=== PATIENT | male | born 1970 | race Caucasian/White ===

== ENCOUNTER → 2016-10-03 | Outpatient (CLI) | payer MEDICARE ==
[2016-10-03 14:23] VITALS: BP 158/93; PULSE 79; RESP 18; TEMP 97.1
--- NOTE | 2016-10-03 14:58 | P.HPIM ---
History of Present Illness H&P Date: 10/03/16 Chief Complaint: mid-back pain and headaches This is a 45-year-old patient referred by Dr. Braswell for chronic pain in the middle of the back with some radiation to the front of the chest and abdomen. Patient has a history of closed-head injury at age 14 and has had chronic headaches for some time, and also complains of numbness/tingling in both hands and feet. Patient had a work-related injury where his back twisted while he was carrying a heavy object and he felt a pop in the middle of his back and has had pain there ever since. Patient has not been taking medications recently except for tramadol, but was previously getting [place] from PCP with relief but is now off opioids completely and does not want them anymore. Patient denies adverse drug effects from medications. Patient also denies new-onset weakness, bowel/bladder incontinence, or any other signs or symptoms of cauda equina syndrome. There are no signs of acute intoxication, and no indications of medication diversion or overuse. Patient notes that pain worsens significantly with standing and walking, and improves with rest, ice and medication. He states that the middle of his back often feels like it's "on fire" and soto a lot. Patient has used several types of medications for pain, including NSAIDS, OPIOIDS, TRAMADOL, ANTIDEPRESSANTS, and BENZODIAZEPINES. Patient HAS NOT had surgery. Patient HAS NOT had injections previously. Patient HAS NOT had physical therapy recently. In addition to above, 13-point review of systems is also negative for chest pain , shortness of breath, changes in vision, changes in hearing, new onset weakness , abdominal pain, diarrhea, extreme fatigue, malaise, fever, skin changes, homicidal or suicidal ideation, or bowel or bladder incontinence. Vital Signs: Reviewed in EMR Gen: WDWN, AAOx3, NAD HEENT: NCAT, EOMI, hearing grossly normal Pulm: resp unlabored Abd: soft, NT, ND Neck: supple, trachea midline ROM in flexion thoracic spine: reduced ROM in extension thoracic spine: reduced Thoracic paravertebral tenderness: ++ Thoracic Facet tenderness: + left side Upper extremity: decreased sensation to pinprick bilaterally Neuro: CN II-XII grossly intact, muscle strength lower extremities PRESERVED Past Medical History Past Medical History: Diabetes Mellitus Additional Past Medical History / Comment(s): migraines, closed head injury History of Any Multi-Drug Resistant Organisms: None Reported Additional Past Surgical History / Comment(s): rhinoplast Past Psychological History: No Psychological Hx Reported, Depression Smoking Status: Current every day smoker Past Alcohol Use History: Rare Past Drug Use History: None Reported - Past Family History Father Family Medical History: Coronary Artery Disease (CAD) Mother Additional Family Medical History / Comment(s): depression Medications and Allergies Home Medications Medication Instructions Recorded Confirmed Type Aspirin EC [Ecotrin Low Dose] 81 mg PO DAILY 10/03/16 10/03/16 History Escitalopram [Lexapro] 10 mg PO DAILY 10/03/16 10/03/16 History Rizatriptan Benzoate [Maxalt] 10 mg PO BID PRN 10/03/16 10/03/16 History clonazePAM [KlonoPIN] 0.5 mg PO TID PRN 10/03/16 10/03/16 History Allergies Allergy/AdvReac Type Severity Reaction Status Date / Time No Known Allergies Allergy Verified 10/03/16 14:15 Results Comments: MRI thoracic spine demonstrates mild degenerative changes. There is posterior disc osteophyte complex at the C6-C7 level. There is a small central disc protrusion at T5-T6 without significant central canal or neural foraminal stenosis. There is small left paracentral disc protrusion at T9-T10 which abuts and flattens the left ventral cord with mild central canal stenosis on the left. There are several small Schmorl's nodes at the inferior endplates of the T6 T9 and T11 vertebrae. Assessment and Plan (1) Thoracic disc herniation Status: Chronic (2) Thoracic spinal stenosis Status: Chronic (3) Thoracic degenerative disc disease Status: Chronic Plan: Plan: 1. Explanation: Opioid and psychological risk scores were reviewed. Diagnoses , prognoses, and multiple treatment options including but not limited to physical therapy, interventional therapies, adjuvant medical therapies, narcotic medication therapies, and surgery were discussed with the patient and all questions were answered to the patient's satisfaction. 2. Opioid agreement: patient refuses opioids 3. Counseling: The patient was counseled extensively on SMOKING CESSATION, BODY MASS INDEX, EXERCISE. Specifically, the patient was instructed regarding the importance of smoking cessation, obesity, and exercise in the context of both chronic pain and overall health. 4. Procedures: thoracic YAZ 5. Consultations: none 6. Investigations: will obtain patient's previous MRI C-spine and records from his future visits to migraine clinic and Dr. Mathew 7. Medications: none prescribed 8. Disposition: f/u for procedure as scheduled if Dr. Mathew does not want to do surgery for him PQRS measures: 1-Patient's medications are documented in the chart. 2-Tobacco use is positive, counseling given 3-Patient has not had a pneumococcal vaccine. 4-Advanced care planning discussed, patient unable to give. 5-Opioid contract NOT signed with the patient (patient does not want opioids). 6-Pain positive, follow-up visit or procedure scheduled 7-Patient's blood pressure measured and documented, and patient will follow up with the primary care due to hypertension. 8-Patient's weight was measured, and body mass index within the normal limits. 9-Patient WAS NOT identified as an unhealthy alcohol user. Time with Patient: Greater than 30
== END | disposition home or self-care (01) ==
LOC: PNWHC3 13:49
PROVIDERS: ATTEND Anesthesiology
DX: M51.24 Other intervertebral disc displacement, thoracic region (principal); M48.04 Spinal stenosis, thoracic region; M51.37 Other intervertebral disc degeneration, lumbosacral region; R51 Headache; F32.9 Major depressive disorder, single episode, unspecified; Z87.820 Personal history of traumatic brain injury; S39.82XA Other specified injuries of lower back, initial encounter; X50.1XXA Overexertion from prolonged static or awkward postures, initial encounter; Y93.89 Activity, other specified; Z79.899 Other long term (current) drug therapy; F17.200 Nicotine dependence, unspecified, uncomplicated; Z72.0 Tobacco use; I10 Essential (primary) hypertension
CPT/HCPCS: 99201

== ENCOUNTER → 2017-05-26 | Outpatient (CLI) | payer MEDICARE ==
[2017-05-26 10:26] LABS: Non-African American GFR(MDRD) >60 (>60 ml/min/1.73 sqM)
--- NOTE | 2017-05-30 09:51 | MR ---
EXAMINATION TYPE: MR brain wo/w con DATE OF EXAM: 05/26/2017 COMPARISON: Prior outside MRI brain July 12, 2016 HISTORY: Migraine, mood swings, hx CHI 1985 TECHNIQUE: Multiplanar, multisequence images of the brain and brainstem is performed without and with IV contras t, utilizing 9 mL intravenous Gadavist . FINDINGS: Diffusion weighted images demonstrate no evidence of a recent infarct or other diffusion ab normality. There is no worrisome extra-axial fluid collection. The ventricular system and cisternal spaces are normal in size and appearance. The brain volume is age appropriate. There are few scatte red punctate areas of T2 hyperintensity throughout the white matter redemonstrated all measuring less than 10 mm in size. There is redemonstration of areas of focal encephalomalacia bilateral parietal r egions, right greater than left in size, near level of lateral ventricles. Midline structures demonstrate normal morphology. The craniocervical junction appears within normal limits. Post contrast images demonstrate no abnormal enhancement. The dural venous sinuses appear pa tent. The visualized sinuses are clear and the globes are intact. IMPRESSION: 1. No significant change from prior study. Minimal nonspecific white matter changes may be product of sequela of chronic migraine headaches among the broad differential. Areas of encephalomalacia or old infarct bilateral parietal lobes redemonstrated.
== END | disposition home or self-care (01) ==
LOC: RADMRIMAIN 09:52
PROVIDERS: ATTEND Physician Assistant
DX: R90.82 White matter disease, unspecified (principal); I10 Essential (primary) hypertension
CPT/HCPCS: 82565; 70553; 36415; A9581

== ENCOUNTER 2018-04-05 16:13 | Emergency (ER) | payer MEDICARE ==
[2018-04-05 16:55] VITALS: RESP 18
[2018-04-05] MEDS ORDERED: SODIUM CHLORIDE 0.9% 1,000 ML IV STA (18:57)
[2018-04-05 18:59] LABS: HCT 40.5 % (39.0-53.0); HGB 12.9 gm/dL (13.0-17.5); MCH 30.4 pg (25.0-35.0); MCHC 31.9 g/dL (31.0-37.0); MCV 95.4 fL (80.0-100.0); Mean Platelet Volume 6.2; Platelet Count 186 k/uL (150-450); RBC 4.25 m/uL (4.30-5.90); RDW 13.8 % (11.5-15.5); WBC 5.5 k/uL (3.8-10.6)
[2018-04-05 19:11] LABS: ALT 41 U/L (21-72); AST 28 U/L (17-59); Alkaline Phosphatase 90 U/L (38-126); Anion Gap 7 mmol/L; Blood Urea Nitrogen 8 mg/dL (9-20); Calcium 8.9 mg/dL (8.4-10.2); Carbon Dioxide 28 mmol/L (22-30); Chloride 103 mmol/L (98-107); Glucose 132 mg/dL (74-99); Potassium 4.1 mmol/L (3.5-5.1); Sodium 138 mmol/L (137-145); Total Bilirubin 0.4 mg/dL (0.2-1.3); Total Protein 6.4 g/dL (6.3-8.2)
--- NOTE | 2018-04-05 19:37 | ED ---
General Adult HPI - General Chief complaint: Extremity Problem,Nontraumatic Stated complaint: leg swelling Time Seen by Provider: 04/05/18 18:36 Source: patient Mode of arrival: ambulatory Limitations: no limitations - History of Present Illness Initial comments: 47 years old male presents with the urging of the both legs, legs or sore, they' re swollen and he has some sort of neuropathy is a type II diabetic. He denies any trauma to the legs she denies any chest pain or shortness of breath he denies any pleuritic chest pain. No fever no chills no signs of any obvious cellulitis. He denies any history of DVT or PE. - Related Data Home Medications Medication Instructions Recorded Confirmed Rizatriptan Benzoate [Maxalt] 10 mg PO BID PRN 10/03/16 04/05/18 Atorvastatin [Lipitor] 20 mg PO HS 04/05/18 04/05/18 Clotrimazole Charles [Mycelex 10 mg MUCOUS MEM DAILY PRN 04/05/18 04/05/18 Charles] Escitalopram [Lexapro] 20 mg PO HS 04/05/18 04/05/18 Lisinopril [Zestril] 20 mg PO DAILY 04/05/18 04/05/18 Montelukast [Singulair] 10 mg PO HS 04/05/18 04/05/18 Ondansetron HCl [Zofran] 4 mg PO BID PRN 04/05/18 04/05/18 metFORMIN HCL ER [Glucophage Xr] 500 mg PO HS 04/05/18 04/05/18 Allergies Allergy/AdvReac Type Severity Reaction Status Date / Time sumatriptan [From Imitrex] Allergy Swelling Verified 04/05/18 18:38 tramadol [From Ultram] AdvReac EAR RINGING Verified 04/05/18 18:41 Review of Systems ROS Statement: Those systems with pertinent positive or pertinent negative responses have been documented in the HPI. ROS Other: All systems not noted in ROS Statement are negative. Past Medical History Past Medical History: Diabetes Mellitus, Hyperlipidemia, Hypertension Additional Past Medical History / Comment(s): migraines, closed head injury History of Any Multi-Drug Resistant Organisms: None Reported Additional Past Surgical History / Comment(s): rhinoplasty Past Anesthesia/Blood Transfusion Reactions: No Reported Reaction Past Psychological History: Depression Smoking Status: Current every day smoker Past Alcohol Use History: Rare Past Drug Use History: None Reported - Past Family History Father Family Medical History: Coronary Artery Disease (CAD) Mother Additional Family Medical History / Comment(s): depression General Exam - General Exam Comments Initial Comments: General: The patient is awake and alert, in no distress, and does not appear acutely ill. Skin: Skin is warm and dry and no rashes or lesions are noted. Eye: Pupils are equal, round and reactive to light, extra-ocular movements are intact; there is normal conjunctiva bilaterally. Ears, nose, mouth and throat: There are moist mucous membranes and no oral lesions. Neck: The neck is supple, there is no tenderness or JVD. Cardiovascular: There is a regular rate and rhythm. No murmur, rub or gallop is appreciated. Respiratory: To auscultation bilateral, no wheezing no rhonchi no distress respiratory bolaños noticed Gastrointestinal: Soft, non-distended, non-tender abdomen without masses or organomegaly noted. There is no rebound or guarding present. Bowel sounds are unremarkable. Back: There is no tenderness to palpation in the midline. There is no obvious deformity. Musculoskeletal: Normal ROM, noticed 2+ edema bilateral no clinical signs of any cellulitis and he is bit tender over the calf areas bilateral and will do the d-dimer if necessary will go ahead and do the venous Dopplers Neurological: CN II-XII intact, Cranial nerves III through XII are intact. There are no obvious motor or sensory deficits. Coordination appears grossly intact. Speech is normal. Psychiatric: Cooperative, appropriate mood & affect, normal judgment. Limitations: no limitations Course Vital Signs 04/05/18 16:52 Temperature 97.9 F Pulse Rate 81 Respiratory 18 Rate Blood Pressure 135/71 O2 Sat by Pulse 99 Oximetry D-dimer is unremarkable along with a CBC and compressive metabolic panel and chest x-ray is unremarkable patient be discharged to follow-up with family doctor EKG Findings - EKG Comments: EKG Findings:: EKG is normal sinus ventricular rate is 71 [place] interval is 166 QRS duration is 100 QT/QTc is 480/454 and aVF this EKG is bit Cold because of the multiple artifacts but do not see any clear ST elevation in any of the leads no clear ST depression noticed noticed reddening of the T-wave in aVL Medical Decision Making - Lab Data Result diagrams: 04/05/18 18:45 04/05/18 18:45 Lab Results 04/05/18 04/05/18 04/05/18 Range/Units 18:45 18:45 18:45 WBC 5.5 (3.8-10.6) k/uL RBC 4.25 L (4.30-5.90) m/uL Hgb 12.9 L (13.0-17.5) gm/dL Hct 40.5 (39.0-53.0) % MCV 95.4 (80.0-100.0) fL MCH 30.4 (25.0-35.0) pg MCHC 31.9 (31.0-37.0) g/dL RDW 13.8 (11.5-15.5) % Plt Count 186 (150-450) k/uL PT (9.0-12.0) sec INR (<1.2) APTT (22.0-30.0) sec D-Dimer (<0.60) mg/L FEU Sodium 138 (137-145) mmol/L Potassium 4.1 (3.5-5.1) mmol/L Chloride 103 (98-107) mmol/L Carbon Dioxide 28 (22-30) mmol/L Anion Gap 7 mmol/L BUN 8 L (9-20) mg/dL Creatinine 0.54 L (0.66-1.25) mg/dL Est GFR (CKD-EPI)AfAm >90 (>60 ml/min/1.73 sqM) Est GFR (CKD-EPI)NonAf >90 (>60 ml/min/1.73 sqM) Glucose 132 H (74-99) mg/dL Calcium 8.9 (8.4-10.2) mg/dL Total Bilirubin 0.4 (0.2-1.3) mg/dL AST 28 (17-59) U/L ALT 41 (21-72) U/L Alkaline Phosphatase 90 (38-126) U/L Total Creatine Kinase 291 H (55-170) U/L NT-Pro-B Natriuret Pep pg/mL Total Protein 6.4 (6.3-8.2) g/dL Albumin 4.0 (3.5-5.0) g/dL 04/05/18 04/05/18 Range/Units 18:45 18:45 WBC (3.8-10.6) k/uL RBC (4.30-5.90) m/uL Hgb (13.0-17.5) gm/dL Hct (39.0-53.0) % MCV (80.0-100.0) fL MCH (25.0-35.0) pg MCHC (31.0-37.0) g/dL RDW (11.5-15.5) % Plt Count (150-450) k/uL PT 9.9 (9.0-12.0) sec INR 1.0 (<1.2) APTT 25.5 (22.0-30.0) sec D-Dimer 0.28 (<0.60) mg/L FEU Sodium (137-145) mmol/L Potassium (3.5-5.1) mmol/L Chloride (98-107) mmol/L Carbon Dioxide (22-30) mmol/L Anion Gap mmol/L BUN (9-20) mg/dL Creatinine (0.66-1.25) mg/dL Est GFR (CKD-EPI)AfAm (>60 ml/min/1.73 sqM) Est GFR (CKD-EPI)NonAf (>60 ml/min/1.73 sqM) Glucose (74-99) mg/dL Calcium (8.4-10.2) mg/dL Total Bilirubin (0.2-1.3) mg/dL AST (17-59) U/L ALT (21-72) U/L Alkaline Phosphatase (38-126) U/L Total Creatine Kinase (55-170) U/L NT-Pro-B Natriuret Pep 73 pg/mL Total Protein (6.3-8.2) g/dL Albumin (3.5-5.0) g/dL Disposition Clinical Impression: Leg swelling Disposition: HOME SELF-CARE Condition: Good Instructions: Leg Edema (ED) Is patient prescribed a controlled substance at d/c from ED?: No Referrals: None,Stated [Primary Care Provider] - 1-2 days
[2018-04-05 20:23] LABS: Creatine Kinase 291 U/L (55-170)
[2018-04-05 20:26] LABS: D-Dimer 0.28 mg/L FEU (<0.60); Partial Thromboplastin Time 25.5 sec (22.0-30.0); Prothrombin Time 9.9 sec (9.0-12.0)
[2018-04-05 20:35] LABS: Troponin I <0.012 ng/mL (0.000-0.034)
--- NOTE | 2018-04-05 20:47 | XR ---
EXAMINATION TYPE: XR chest 2V DATE OF EXAM: 04/05/2018 COMPARISON: NONE HISTORY: Leg swelling TECHNIQUE: Frontal and lateral views of the chest are obtained. FINDINGS: Heart and mediastinum are normal. There is slight coarsening of interstitial markings in t he lower lung allen. There is no heart failure. Mediastinum is within normal limits. There is no ple ural effusion. Bony thorax is intact. IMPRESSION: Minimal pulmonary interstitial density. No heart failure.
[2018-04-05 21:11] LABS: Creatine Kinase MB 4.9 ng/mL (0.0-2.4)
[2018-04-05 21:31] VITALS: BP 115/59; PULSE 68; TEMP 97.7
== END 2018-04-05 21:32 | disposition home or self-care (01) ==
LOC: EC 16:13
DX: M79.89 Other specified soft tissue disorders (principal); E11.40 Type 2 diabetes mellitus with diabetic neuropathy, unspecified; E78.5 Hyperlipidemia, unspecified; I10 Essential (primary) hypertension; F32.9 Major depressive disorder, single episode, unspecified; F17.200 Nicotine dependence, unspecified, uncomplicated; Z79.84 Long term (current) use of oral hypoglycemic drugs; Z79.899 Other long term (current) drug therapy; Z88.8 Allergy status to other drugs, medicaments and biological substances; Z88.6 Allergy status to analgesic agent
CPT/HCPCS: 36415; 71046; 80053; 82550; 82553; 83735; 83880; 84484; 85027; 85379; 85610; 85730; 93005; 99284

== ENCOUNTER → 2022-09-07 | Outpatient (CLI) | payer MEDICARE ==
[2022-09-07 09:24] VITALS: BP 95/56; PULSE 89; RESP 18
--- NOTE | 2022-09-07 10:22 | XR ---
EXAMINATION TYPE: XR thoracic spine 2V DATE OF EXAM: 09/07/2022 9:34 AM INDICATION: Patient age:Male; 51 years old; Reason for study: M51.34; COMPARISON: None TECHNIQUE: 2 views of the thoracic spine in Frontal and lateral projections. FINDINGS: No evidence of acute fracture. Vertebral body heights are maintained. There is increased kyphosis of the spine. Mild degeneration changes with osteophyte formation and disc space narrowing. IMPRESSION: 1. No acute osseous pathology. 2. Mild multilevel disc degeneration changes throughout the thoracic spine.
--- NOTE | 2022-09-07 14:06 | P.PAINPG ---
PQRS Measure Charge Sheet Comment: HISTORY OF PRESENT ILLNESS: 51 yr old male as a referral from Dr Varela presents today w severe and chronic neck & upper back pain secondary to DDD, stenosis and facet arthropathy without myelopathy for evaluation. Pt states pain level is at 7/10 in intensity, constant, localized in the lower cervical and upper thoracic spine, burning, sharp in character w tingling towards the UEs. Also admits to a sore spot in the upper thoracic region L of midline. Pain is provoked by palpation, hyperextension, rotation. Pain is alleviated by medications (Methadone 10mg QID), Lidoderm patches which are ineffective, PT and chiropractic treatments in the past, home stretching regimen as tolerated, repositioning and rest. PMH: HTN, Hyperlipidemia, DM II, GERD, Migraine SERRANO, MDD/ Anxiety, Bipolar Disorder PSH: Hx of CHI, Rhinoplasty SH: 72 pack/yr current tobacco use, Rare ETOH use, No illicit drug use. . FH: Fa- CAD. Mo- MDD. All: See list Meds: See list REVIEW OF ORGAN SYSTEMS: CONSTITUTIONAL: No fevers or chills. No recent weight loss. NEUROLOGICAL: + numbness and tingling along the distal extremities. No seizure disorders or headaches. MUSCULOSKELETAL: + pain PSYCHIATRIC: Denies current depression or suicidal thoughts. Physical Examinations : Constitutional : Cooperative , not in acute distress . Neurologic : Cranial nerve II to XII intact. No focal neurological deficits. Psychiatric : alert & oriented x 3. Matching mood & appropriate affect. Judgment & insight intact. Musculoskeletal : Cervical Spine Motor strength in the deltoid and biceps: Normal right side. Normal Left side Motor strength biceps and the wrist extensors: Normal right side . Normal left side Motor strength in the triceps muscle: Normal right side. Normal left side Deep tendon reflexes: Normal at the biceps. Normal at Brachioradialis. Normal at triceps Vertebral body tenderness to deep palpation over C4, C5, C6, C7 Cervical facet loading test: positive bilaterally Spurling test: positive bilaterally Neck distraction test: positive bilaterally Argelia sign: positive bilaterally Thoracic spine Vertebral body TTP over T4-T6 L of midline Lumbar spine Motor strength lower extremities ,thigh and legs 5/5 Right side , 5/5 Left side Deep tendon reflexes : Normal Knee Jerk. Normal Ankle Jerk Vertebral body tenderness over Lumbar facet Loading Test: positive Right / positive Left Range of motion of the lumbar spine Flexion 30 degrees, extension 10 degrees Straight Leg Raise test: Left/ Right positive at degree Cecily test: positive right / positive left. Severe tenderness over the Sacroiliac joint on the Right / Left sides Gaenslen test: positive bilaterally Seated flexion test: positive bilaterally. Sacral spine : Severe tenderness over the Sacroiliac joint: right side / left side Range of motion: Flexion of the lumbar spine <60 degrees Range of motion: Extension of the lumbar spine <20 degrees Gaenslen's Test positive Derrick's Test positive Cecily test: positive right side / left side Thigh Thrust Test Sacral Thrust Test Imaging: MRI without contrast of the cervical spine from 12/30/20 reviewed Assessment/ Plan : Cervical stenosis, cervical DDD Recommendation of refill of Methadone 10mg TID w 1 RF. EKG script provided as pt does not recall when his last EKG was due to symptoms of CHI. Thoracic x ray re: M51.34 provided. May return to clinic in 8 wks for a re evaluation. All questions answered. I have spent greater than 30 minutes on patient care today. Dr Burgos was available by phone for the evaluation of this patient. The time was used to review the medical records including relevant urine studies and Prescription history (MAPs), review of the available imaging, evaluation and examination of the patient, coordination of care with the medical staff and if applicable referring physicians, as well as creation of the medical record PQRS Narrative: Smoking Status Current every day smoker Hx Alcohol Use (MH) No Home Medications: Ambulatory Orders Rizatriptan Benzoate [Maxalt] 10 mg PO BID PRN 10/03/16 Atorvastatin [Lipitor] 20 mg PO HS 04/05/18 metFORMIN HCL ER [Glucophage Xr] 500 mg PO HS 04/05/18 ondansetron HCL [Zofran] 4 mg PO BID PRN 04/05/18 ALPRAZolam [Xanax] 0.5 mg PO DAILY PRN 09/07/22 Albuterol Sulfate [Ventolin HFA] 1 - 2 puff INHALATION Q6H PRN 09/07/22 Desvenlafaxine Succinate [Pristiq] 100 mg PO DAILY 09/07/22 Fluticasone/Vilanterol [Breo Ellipta 100-25 Mcg Inhaler] 1 inhalation PO Q24HR 09/07/22 Furosemide [Lasix] 40 mg PO DAILY 09/07/22 Insulin Degludec [Tresiba] 0 units SQ DAILY 09/07/22 Methadone [Dolophine] 10 mg PO Q6H 09/07/22 Olmesartan [Benicar] 20 mg PO DAILY 09/07/22 Omeprazole [PriLOSEC] 20 mg PO AC-[id number] 09/07/22 Pioglitazone [Actos] 15 mg PO DAILY 09/07/22 Potassium Chloride ER [K-Dur 10] 10 meq PO DAILY 09/07/22 QUEtiapine [SEROquel] 100 mg PO DAILY 09/07/22 Vitamin B Complex/Folic Acid [Vitamin B Complex Tablet] 0.4 mg PO DAILY 09/07/22 tiZANidine HCL [Zanaflex] 4 mg PO TID 09/07/22 Controlled Substance Measures - Controlled Substance Measures Is patient prescribed a controlled substance at discharge?: Yes When asked, does pt state using other controlled substances?: No If prescribed controlled substance>3 days was MAPS reviewed?: Yes If Rx opioid, was Start Talking consent form obtained?: Yes If opioid is for acute pain is fill amount 7 days or less?: No Was information provided regarding opioid addiction?: Yes
== END ==
LOC: PNWHC3 08:10
PROVIDERS: ATTEND Specialist
DX: M50.30 Other cervical disc degeneration, unspecified cervical region (principal); M48.02 Spinal stenosis, cervical region; I10 Essential (primary) hypertension; E78.5 Hyperlipidemia, unspecified; E11.9 Type 2 diabetes mellitus without complications; K21.9 Gastro-esophageal reflux disease without esophagitis; F41.9 Anxiety disorder, unspecified; F31.9 Bipolar disorder, unspecified; Z79.84 Long term (current) use of oral hypoglycemic drugs; F17.200 Nicotine dependence, unspecified, uncomplicated; Z88.5 Allergy status to narcotic agent; Z88.8 Allergy status to other drugs, medicaments and biological substances
CPT/HCPCS: 72070; 93005; G0463; 99202

== ENCOUNTER → 2022-11-02 | Outpatient (CLI) | payer MEDICARE ==
--- NOTE | 2022-11-02 14:51 | P.PAINPG ---
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 Pain level is provoked at 6 /10 in intensity, constant, localized in the thoracic spine, dull in character w/o shooting pain. Pain is provoked by over activity. Pain is alleviated with medications (Methadone), repositioning and rest. Completed thoracic x ray in Aug 2022. Patient is currently on Methadone 10mg #90 Patient denies any side effects of the medication(s), denies excessive drowsiness or sleepiness, denies suicidal ideation and reports that the current pain medication is helping to control the pain and improve activities of daily living. Patient denies any motor or sensory deficits. Patient denies any fever or night sweats, denies any change in the bowel movements or urination. Physical Examination: -Constitutional: Cooperative. Not in acute distress . - Neurologic: Cranial nerve II to XII intact. No focal neurological deficits. - Psychatric: Alert & oriented x 3. Matching mood & appropriate affect. Judgment and insight intact. - Musculoskeletal: Cervical spine: Muscle bulk/ tone/ strength in the bilateral upper extremities normal Vertebral body tenderness to palpation over Spurling test positive Distraction test positive Facet loading test positive TTP Thoracic spine Muscle bulk / tone/ strength in the bilateral paraspinal muscles normal Vertebral body tender to palpation over T7 Facet loading test positive TTP Lumbar spine: Motor bulk/ tone/ strength lower extremities , thigh and legs : 5/5 Deep tendon reflexes : Normal Knee Jerk. Normal Ankle Jerk . Vertebral body tenderness to palpation over Lumbar Facet Loading Test positive Straight Leg Raise: positive at 30 degrees right side/ left side Gaenslen's Test positive Sacral spine : Severe tenderness over the Sacroiliac joint: right side / left side Range of motion: Flexion of the lumbar spine <60 degrees Range of motion: Extension of the lumbar spine <20 degrees Gaenslen's Test positive right side / left side Cecily test: positive right side / left side Thigh Thrust Test positive right side / left side Sacral Thrust Test positive right side / left side Assessment and plan: Chronic mid back secondary to thoracic DDD, spondylosis with facet arthropathy without myelopathy MRI without contrast of the thoracic spine re: M51.34 Chronic and current use of high-risk medication (Opioids). The patient was counseled about risk of opioid use, psychological risk associated with opioids and was orally counseled to not overuse , divert or sell medications. Pt is to store medication in a safe location. The patient is counseled against driving while using narcotic medications and also not to use alcohol or any illicit recreational drugs. Patient verbalized understanding that the lack of compliance will result in failure to renew narcotic prescription(s) as well as possible discharge from the clinic Diagnoses, prognosis and treatment options including but not limited to physical therapy, surgical interventions, interventional therapies and medication management including narcotics and adjuvant medication were discussed. All patient questions answered MAPS reviewed and it was appropriate. Prescription refill for Methadone 10mg #90 w 1 RF. I have spent less than 30 minutes on patient care today. Dr Burgos was available by phone for the evaluation of this patient. The time was used to review the medical records including relevant urine studies and Prescription history (MAPs), review of the available imaging, evaluation and examination of the patient, coordination of care with the medical staff and if applicable referring physicians, as well as creation of the medical record PQRS Narrative: Smoking Status Current every day smoker Narcotic Agreement Date Signed 09/07/22 Hx Alcohol Use (MH) No Home Medications: Ambulatory Orders Rizatriptan Benzoate [Maxalt] 10 mg PO BID PRN 10/03/16 Atorvastatin [Lipitor] 20 mg PO HS 04/05/18 metFORMIN HCL ER [Glucophage Xr] 500 mg PO HS 04/05/18 ondansetron HCL [Zofran] 4 mg PO BID PRN 04/05/18 ALPRAZolam [Xanax] 0.5 mg PO DAILY PRN 09/07/22 Albuterol Sulfate [Ventolin HFA] 1 - 2 puff INHALATION Q6H PRN 09/07/22 Desvenlafaxine Succinate [Pristiq] 100 mg PO DAILY 09/07/22 Fluticasone/Vilanterol [Breo Ellipta 100-25 Mcg Inhaler] 1 inhalation PO Q24HR 09/07/22 Furosemide [Lasix] 40 mg PO DAILY 09/07/22 Insulin Degludec [Tresiba] 0 units SQ DAILY 09/07/22 Olmesartan [Benicar] 20 mg PO DAILY 09/07/22 Omeprazole [PriLOSEC] 20 mg PO AC-BRKFST 09/07/22 Pioglitazone [Actos] 15 mg PO DAILY 09/07/22 Potassium Chloride ER [K-Dur 10] 10 meq PO DAILY 09/07/22 QUEtiapine [SEROquel] 100 mg PO DAILY 09/07/22 Vitamin B Complex/Folic Acid [Vitamin B Complex Tablet] 0.4 mg PO DAILY 09/07/22 tiZANidine HCL [Zanaflex] 4 mg PO TID 09/07/22 Methadone HCl 10 mg PO TID 30 Days #90 tab 11/02/22 Methadone [Dolophine] 10 mg PO Q8H 30 Days #90 tab 11/02/22 Controlled Substance Measures - Controlled Substance Measures Is patient prescribed a controlled substance at discharge?: Yes
[2022-11-02 15:38] VITALS: BP 135/92; PULSE 91; RESP 18; TEMP 98.7
== END ==
LOC: PNWHC3 13:02
PROVIDERS: ATTEND Specialist
DX: M51.34 Other intervertebral disc degeneration, thoracic region (principal); M47.814 Spondylosis without myelopathy or radiculopathy, thoracic region; G89.29 Other chronic pain; Z79.891 Long term (current) use of opiate analgesic; Z88.5 Allergy status to narcotic agent; Z88.8 Allergy status to other drugs, medicaments and biological substances; F17.200 Nicotine dependence, unspecified, uncomplicated
CPT/HCPCS: 99211

== ENCOUNTER → 2022-12-29 | Outpatient (CLI) | payer MEDICARE ==
[2022-12-29 12:01] VITALS: BP 144/91; PULSE 101; RESP 18; TEMP 98.5
--- NOTE | 2022-12-29 14:46 | P.PAINPG ---
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 Pain level is provoked at 9 /10 in intensity, constant, localized in the thoracic spine, pressure in character w/o shooting pain. Pain is provoked by over activity. PT was years ago. Pain is alleviated with medications (Methadone), Lidoderm patches, repositioning and rest. Completed thoracic x ray in Aug 2022. Has not completed MRI thoracic spine. Urged compliance. Patient is currently on Methadone 10mg #90 Patient denies any side effects of the medication(s), denies excessive drowsiness or sleepiness, denies suicidal ideation and reports that the current pain medication is helping to control the pain and improve activities of daily living. Patient denies any motor or sensory deficits. Patient denies any fever or night sweats, denies any change in the bowel movements or urination. Physical Examination: -Constitutional: Cooperative. Not in acute distress . - Neurologic: Cranial nerve II to XII intact. No focal neurological deficits. - Psychatric: Alert & oriented x 3. Matching mood & appropriate affect. Judgment and insight intact. - Musculoskeletal: Cervical spine: Muscle bulk/ tone/ strength in the bilateral upper extremities normal Vertebral body tenderness to palpation over Spurling test positive Distraction test positive Facet loading test positive TTP Thoracic spine Muscle bulk / tone/ strength in the bilateral paraspinal muscles normal Vertebral body tender to palpation over T7 Facet loading test positive TTP Lumbar spine: Motor bulk/ tone/ strength lower extremities , thigh and legs : 5/5 Deep tendon reflexes : Normal Knee Jerk. Normal Ankle Jerk . Vertebral body tenderness to palpation over Lumbar Facet Loading Test positive Straight Leg Raise: positive at 30 degrees right side/ left side Gaenslen's Test positive Sacral spine : Severe tenderness over the Sacroiliac joint: right side / left side Range of motion: Flexion of the lumbar spine <60 degrees Range of motion: Extension of the lumbar spine <20 degrees Gaenslen's Test positive right side / left side Cecily test: positive right side / left side Thigh Thrust Test positive right side / left side Sacral Thrust Test positive right side / left side Assessment and plan: Chronic mid back secondary to thoracic DDD, spondylosis with facet arthropathy without myelopathy MRI without contrast of the thoracic spine re: M51.34 Chronic and current use of high-risk medication (Opioids). The patient was counseled about risk of opioid use, psychological risk associated with opioids and was orally counseled to not overuse , divert or sell medications. Pt is to store medication in a safe location. The patient is counseled against driving while using narcotic medications and also not to use alcohol or any illicit recreational drugs. Patient verbalized understanding that the lack of compliance will result in failure to renew narcotic prescription(s) as well as possible discharge from the clinic Diagnoses, prognosis and treatment options including but not limited to physical therapy, surgical interventions, interventional therapies and medication management including narcotics and adjuvant medication were discussed. All patient questions answered MAPS reviewed and it was appropriate. Will check UDS at next visit. Prescription refill for Methadone 10mg #90 w 1 RF. I have spent less than 30 minutes on patient care today. Dr Burgos was available by phone for the evaluation of this patient. The time was used to review the medical records including relevant urine studies and Prescription history (MAPs), review of the available imaging, evaluation and examination of the patient, coordination of care with the medical staff and if applicable referring physicians, as well as creation of the medical record PQRS Narrative: Smoking Status Current every day smoker Narcotic Agreement Date Signed 09/07/22 Hx Alcohol Use (MH) No Home Medications: Ambulatory Orders Rizatriptan Benzoate [Maxalt] 10 mg PO BID PRN 10/03/16 Atorvastatin [Lipitor] 20 mg PO HS 04/05/18 metFORMIN HCL ER [Glucophage Xr] 500 mg PO HS 04/05/18 ondansetron HCL [Zofran] 4 mg PO BID PRN 04/05/18 ALPRAZolam [Xanax] 0.5 mg PO DAILY PRN 09/07/22 Albuterol Sulfate [Ventolin HFA] 1 - 2 puff INHALATION Q6H PRN 09/07/22 Desvenlafaxine Succinate [Pristiq] 100 mg PO DAILY 09/07/22 Fluticasone/Vilanterol [Breo Ellipta 100-25 Mcg Inhaler] 1 inhalation PO Q24HR 09/07/22 Furosemide [Lasix] 40 mg PO DAILY 09/07/22 Insulin Degludec [Tresiba] 0 units SQ DAILY 09/07/22 Olmesartan [Benicar] 20 mg PO DAILY 09/07/22 Omeprazole [PriLOSEC] 20 mg PO AC-BRKFST 09/07/22 Pioglitazone [Actos] 15 mg PO DAILY 09/07/22 Potassium Chloride ER [K-Dur 10] 10 meq PO DAILY 09/07/22 QUEtiapine [SEROquel] 100 mg PO DAILY 09/07/22 Vitamin B Complex/Folic Acid [Vitamin B Complex Tablet] 0.4 mg PO DAILY 09/07/22 tiZANidine HCL [Zanaflex] 4 mg PO TID 09/07/22 Methadone HCl 10 mg PO TID 30 Days #90 tab 12/29/22 Methadone [Dolophine] 10 mg PO Q8H 30 Days #90 tab 12/29/22 Controlled Substance Measures - Controlled Substance Measures Is patient prescribed a controlled substance at discharge?: No
== END ==
LOC: PNWHC3 08:42
PROVIDERS: ATTEND Anesthesiology
DX: M51.34 Other intervertebral disc degeneration, thoracic region (principal); M47.814 Spondylosis without myelopathy or radiculopathy, thoracic region; G89.29 Other chronic pain; Z79.891 Long term (current) use of opiate analgesic; Z91.018 Allergy to other foods; F17.200 Nicotine dependence, unspecified, uncomplicated; Z88.5 Allergy status to narcotic agent; Z88.8 Allergy status to other drugs, medicaments and biological substances
CPT/HCPCS: 99211

== ENCOUNTER → 2023-01-25 | Outpatient (CLI) | payer MEDICARE ==
--- NOTE | 2023-01-25 23:02 | MR ---
EXAMINATION TYPE: MR thoracic spine wo con DATE OF EXAM: 01/25/2023 3:25 PM COMPARISON: No priors. INDICATION: Patient age:Male; 52 years old; Reason for study: M51.34 INTERVERTEBRAL DISC DEGENERATION; PHH. Back pain TECHNIQUE: Multi planar, multi sequence imaging was performed utilizing: T1-weighted, short-tau inver karan recovery and T2-weighted of the thoracic spine. The patient was not given Gadolinium. IV Contrast: None FINDINGS: No abnormal bony edema on inversion recovery sequences. No evidence for significant spinal canal neural foraminal stenosis. Scattered disc space narrowing with disc desiccation is present. Th ere is C7-T1 disc osteophyte complex which mildly narrows the ventral subarachnoid space. No other ev idence for extradural defects. Vertebral body heights and cord signal is maintained. IMPRESSION: No finding to correlate patient's back pain. There is mild degeneration changes. No evidence for sign ificant spinal canal or neural foraminal stenosis.
== END | disposition home or self-care (01) ==
LOC: RADMRIMAIN 14:23
PROVIDERS: ATTEND Specialist
DX: M51.34 Other intervertebral disc degeneration, thoracic region (principal); M47.814 Spondylosis without myelopathy or radiculopathy, thoracic region
CPT/HCPCS: 72146

== ENCOUNTER → 2023-02-22 | Outpatient (CLI) | payer MEDICARE ==
[2023-02-22 14:53] VITALS: BP 154/100; PULSE 104; RESP 97; TEMP 98.2
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
== END ==
LOC: PNWHC3 14:11
PROVIDERS: ATTEND Specialist
DX: M51.34 Other intervertebral disc degeneration, thoracic region (principal); F17.200 Nicotine dependence, unspecified, uncomplicated; M47.814 Spondylosis without myelopathy or radiculopathy, thoracic region; G89.29 Other chronic pain; Z88.8 Allergy status to other drugs, medicaments and biological substances
CPT/HCPCS: 99212

== ENCOUNTER → 2023-04-19 | Outpatient (CLI) | payer MEDICARE ==
[2023-04-19 14:56] VITALS: BP 122/77; PULSE 93; RESP 16; TEMP 98.6
--- NOTE | 2023-04-19 15:04 | P.PAINPG ---
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 Pain level is provoked at 9 /10 in intensity, constant, localized in the thoracic spine, pressure in character w shooting pain towards BL shoulders and ribs. Pain is provoked by over activity. PT was years ago. Pain is alleviated with medications, Lidoderm patches, repositioning and rest. Patient is currently on Methadone 10mg #75 Patient denies any side effects of the medication(s), denies excessive drowsiness or sleepiness, denies suicidal ideation and reports that the current pain medication is helping to control the pain and improve activities of daily living. Patient denies any motor or sensory deficits. Patient denies any fever or night sweats, denies any change in the bowel movements or urination. Physical Examination: -Constitutional: Cooperative. Not in acute distress . - Neurologic: Cranial nerve II to XII intact. No focal neurological deficits. - Psychatric: Alert & oriented x 3. Matching mood & appropriate affect. Judgment and insight intact. - Musculoskeletal: Cervical spine: Muscle bulk/ tone/ strength in the bilateral upper extremities normal Vertebral body tenderness to palpation over Spurling test positive Distraction test positive Facet loading test positive TTP Thoracic spine Muscle bulk / tone/ strength in the bilateral paraspinal muscles normal Vertebral body tender to palpation over T7 Facet loading test positive TTP Lumbar spine: Motor bulk/ tone/ strength lower extremities , thigh and legs : 5/5 Deep tendon reflexes : Normal Knee Jerk. Normal Ankle Jerk . Vertebral body tenderness to palpation over Lumbar Facet Loading Test positive Straight Leg Raise: positive at 30 degrees right side/ left side Gaenslen's Test positive Sacral spine : Severe tenderness over the Sacroiliac joint: right side / left side Range of motion: Flexion of the lumbar spine <60 degrees Range of motion: Extension of the lumbar spine <20 degrees Gaenslen's Test positive right side / left side Cecily test: positive right side / left side Thigh Thrust Test positive right side / left side Sacral Thrust Test positive right side / left side Assessment and plan: Chronic mid back secondary to thoracic DDD, spondylosis with facet arthropathy without myelopathy Chronic and current use of high-risk medication (Opioids). The patient was counseled about risk of opioid use, psychological risk associated with opioids and was orally counseled to not overuse , divert or sell medications. Pt is to store medication in a safe location. The patient is counseled against driving while using narcotic medications and also not to use alcohol or any illicit recreational drugs. Patient verbalized understanding that the lack of compliance will result in failure to renew narcotic prescription(s) as well as possible discharge from the clinic Diagnoses, prognosis and treatment options including but not limited to physical therapy, surgical interventions, interventional therapies and medication management including narcotics and adjuvant medication were discussed. All patient questions answered MAPS reviewed and it was appropriate. UDS fr 02/22/23 reviewed and consistent. Prescription refill for Methadone 10mg #75 w 1 RF. I have spent less than 30 minutes on patient care today. Dr Burgos was available by phone for the evaluation of this patient. The time was used to review the medical records including relevant urine studies and Prescription history (MAPs), review of the available imaging, evaluation and examination of the patient, coordination of care with the medical staff and if applicable referring physicians, as well as creation of the medical record PQRS Narrative: Smoking Status Current every day smoker Narcotic Agreement Date Signed 09/07/22 Hx Alcohol Use (MH) No Home Medications: Ambulatory Orders Rizatriptan Benzoate [Maxalt] 10 mg PO BID PRN 10/03/16 Atorvastatin [Lipitor] 20 mg PO HS 04/05/18 metFORMIN HCL ER [Glucophage Xr] 500 mg PO HS 04/05/18 ondansetron HCL [Zofran] 4 mg PO BID PRN 04/05/18 ALPRAZolam [Xanax] 0.5 mg PO DAILY PRN 09/07/22 Albuterol Sulfate [Ventolin HFA] 1 - 2 puff INHALATION Q6H PRN 09/07/22 Desvenlafaxine Succinate [Pristiq] 100 mg PO DAILY 09/07/22 Fluticasone/Vilanterol [Breo Ellipta 100-25 Mcg Inhaler] 1 inhalation PO Q24HR 09/07/22 Furosemide [Lasix] 40 mg PO DAILY 09/07/22 Insulin Degludec [Tresiba] 0 units SQ DAILY 09/07/22 Olmesartan [Benicar] 20 mg PO DAILY 09/07/22 Omeprazole [PriLOSEC] 20 mg PO AC-BRKFST 09/07/22 Pioglitazone [Actos] 15 mg PO DAILY 09/07/22 Potassium Chloride ER [K-Dur 10] 10 meq PO DAILY 09/07/22 QUEtiapine [SEROquel] 100 mg PO DAILY 09/07/22 Vitamin B Complex/Folic Acid [Vitamin B Complex Tablet] 0.4 mg PO DAILY 09/07/22 tiZANidine HCL [Zanaflex] 4 mg PO TID 09/07/22 Methadone [Dolophine] 10 mg PO Q8H 30 Days #90 tab 12/29/22 Methadone HCl 10 mg PO TID 30 Days #75 tab 02/22/23 Methadone HCl 10 mg PO Q8H 30 Days #75 tab 04/19/23 Methadone HCl 10 mg PO Q8HR 30 Days #75 tablet 04/19/23 Controlled Substance Measures - Controlled Substance Measures Is patient prescribed a controlled substance at discharge?: Yes When asked, does pt state using other controlled substances?: No If prescribed controlled substance>3 days was MAPS reviewed?: Yes
== END ==
LOC: PNWHC3 14:08
PROVIDERS: ATTEND Specialist
DX: M51.34 Other intervertebral disc degeneration, thoracic region (principal); M47.814 Spondylosis without myelopathy or radiculopathy, thoracic region; G89.29 Other chronic pain; F17.200 Nicotine dependence, unspecified, uncomplicated; Z88.8 Allergy status to other drugs, medicaments and biological substances; Z79.891 Long term (current) use of opiate analgesic; Z88.5 Allergy status to narcotic agent
CPT/HCPCS: 93005; G0463; 99211

== ENCOUNTER → 2023-06-14 | Outpatient (CLI) | payer MEDICARE ==
[2023-06-14 14:27] VITALS: BP 159/95; PULSE 109; RESP 16; TEMP 98.7
--- NOTE | 2023-06-14 14:59 | P.PAINPG ---
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 Pain level is provoked at 9 /10 in intensity, constant, localized in the thoracic spine, pressure in character w shooting pain towards BL shoulders and ribs. Pain is provoked by over activity. PT was years ago. Pain is alleviated with medications, Lidoderm patches, repositioning and rest. He hasn't filled Xanax since Jun 2022 and he appears anxious today. Patient is currently on Methadone 10mg #75 Patient denies any side effects of the medication(s), denies excessive drowsiness or sleepiness, denies suicidal ideation and reports that the current pain medication is helping to control the pain and improve activities of daily living. Patient denies any motor or sensory deficits. Patient denies any fever or night sweats, denies any change in the bowel movements or urination. Physical Examination: -Constitutional: Cooperative. Not in acute distress . - Neurologic: Cranial nerve II to XII intact. No focal neurological deficits. - Psychatric: Alert & oriented x 3. Matching mood & appropriate affect. Judgment and insight intact. - Musculoskeletal: Cervical spine: Muscle bulk/ tone/ strength in the bilateral upper extremities normal Vertebral body tenderness to palpation over Spurling test positive Distraction test positive Facet loading test positive TTP Thoracic spine Muscle bulk / tone/ strength in the bilateral paraspinal muscles normal Vertebral body tender to palpation over T7 Facet loading test positive TTP Lumbar spine: Motor bulk/ tone/ strength lower extremities , thigh and legs : 5/5 Deep tendon reflexes : Normal Knee Jerk. Normal Ankle Jerk . Vertebral body tenderness to palpation over Lumbar Facet Loading Test positive Straight Leg Raise: positive at 30 degrees right side/ left side Gaenslen's Test positive Sacral spine : Severe tenderness over the Sacroiliac joint: right side / left side Range of motion: Flexion of the lumbar spine <60 degrees Range of motion: Extension of the lumbar spine <20 degrees Gaenslen's Test positive right side / left side Cecily test: positive right side / left side Thigh Thrust Test positive right side / left side Sacral Thrust Test positive right side / left side Assessment and plan: Chronic mid back secondary to thoracic DDD, spondylosis with facet arthropathy without myelopathy Chronic and current use of high-risk medication (Opioids). The patient was counseled about risk of opioid use, psychological risk associated with opioids and was orally counseled to not overuse , divert or sell medications. Pt is to store medication in a safe location. The patient is counseled against driving while using narcotic medications and also not to use alcohol or any illicit recreational drugs. Patient verbalized understanding that the lack of compliance will result in failure to renew narcotic prescription(s) as well as possible discharge from the clinic Diagnoses, prognosis and treatment options including but not limited to physical therapy, surgical interventions, interventional therapies and medication management including narcotics and adjuvant medication were discussed. All patient questions answered MAPS reviewed and it was appropriate. UDS from 02/22/23 reviewed and consistent. Prescription refill for Methadone 10mg #75 w 1 RF. I have spent less than 30 minutes on patient care today. Dr Burgos was available by phone for the evaluation of this patient. The time was used to review the medical records including relevant urine studies and Prescription history (MAPs), review of the available imaging, evaluation and examination of the patient, coordination of care with the medical staff and if applicable referring physicians, as well as creation of the medical record PQRS Narrative: Smoking Status Current every day smoker Narcotic Agreement Date Signed 09/07/22 Hx Alcohol Use (MH) No Home Medications: Ambulatory Orders Rizatriptan Benzoate [Maxalt] 10 mg PO BID PRN 10/03/16 metFORMIN HCL ER [Glucophage Xr] 500 mg PO HS 04/05/18 ondansetron HCL [Zofran] 4 mg PO BID PRN 04/05/18 Albuterol Sulfate [Ventolin HFA] 1 - 2 puff INHALATION Q6H PRN 09/07/22 Desvenlafaxine Succinate [Pristiq] 100 mg PO DAILY 09/07/22 Fluticasone/Vilanterol [Breo Ellipta 100-25 Mcg Inhaler] 1 inhalation PO Q24HR 09/07/22 Insulin Degludec [Tresiba] 0 units SQ DAILY 09/07/22 Olmesartan [Benicar] 20 mg PO DAILY 09/07/22 Omeprazole [PriLOSEC] 20 mg PO AC-BRKFST 09/07/22 Pioglitazone [Actos] 15 mg PO DAILY 09/07/22 Vitamin B Complex/Folic Acid [Vitamin B Complex Tablet] 0.4 mg PO DAILY 09/07/22 tiZANidine HCL [Zanaflex] 4 mg PO TID 09/07/22 Methadone [Dolophine] 10 mg PO Q8H 30 Days #90 tab 12/29/22 Methadone HCl 10 mg PO TID 30 Days #75 tab 02/22/23 Methadone HCl 10 mg PO Q8H 30 Days #75 tab 06/14/23 Methadone HCl 10 mg PO Q8HR 30 Days #75 tablet 06/14/23 Controlled Substance Measures - Controlled Substance Measures Is patient prescribed a controlled substance at discharge?: Yes When asked, does pt state using other controlled substances?: No If prescribed controlled substance>3 days was MAPS reviewed?: Yes
== END ==
LOC: PNWHC3 13:46
PROVIDERS: ATTEND Specialist
DX: M51.34 Other intervertebral disc degeneration, thoracic region (principal); M47.814 Spondylosis without myelopathy or radiculopathy, thoracic region; G89.29 Other chronic pain; F17.200 Nicotine dependence, unspecified, uncomplicated; Z79.891 Long term (current) use of opiate analgesic; Z88.1 Allergy status to other antibiotic agents; Z88.8 Allergy status to other drugs, medicaments and biological substances
CPT/HCPCS: 99211

== ENCOUNTER → 2023-09-04 | Outpatient (CLI) | payer MEDICARE ==
[2023-09-04 14:20] VITALS: BP 152/88; PULSE 100; RESP 16
--- NOTE | 2023-09-04 15:07 | P.PAINPG ---
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 Pain level is provoked at 6/10 in intensity, constant, localized in the thoracic spine, pressure in character w shooting pain towards LUE. Pain is provoked by over activity. PT was years ago. Pain is alleviated with medications, Lidoderm patches, repositioning and rest. Patient is currently on Methadone 10mg #75 Patient denies any side effects of the medication(s), denies excessive drowsiness or sleepiness, denies suicidal ideation and reports that the current pain medication is helping to control the pain and improve activities of daily living. Patient denies any motor or sensory deficits. Patient denies any fever or night sweats, denies any change in the bowel movements or urination. Physical Examination: -Constitutional: Cooperative. Not in acute distress . - Neurologic: Cranial nerve II to XII intact. No focal neurological deficits. - Psychatric: Alert & oriented x 3. Matching mood & appropriate affect. Judgment and insight intact. - Musculoskeletal: Cervical spine: Muscle bulk/ tone/ strength in the bilateral upper extremities normal Vertebral body tenderness to palpation over Spurling test positive Distraction test positive Facet loading test positive TTP Thoracic spine Muscle bulk / tone/ strength in the bilateral paraspinal muscles normal Vertebral body tender to palpation over T7 Facet loading test positive TTP Lumbar spine: Motor bulk/ tone/ strength lower extremities , thigh and legs : 5/5 Deep tendon reflexes : Normal Knee Jerk. Normal Ankle Jerk . Vertebral body tenderness to palpation over Lumbar Facet Loading Test positive Straight Leg Raise: positive at 30 degrees right side/ left side Gaenslen's Test positive Sacral spine : Severe tenderness over the Sacroiliac joint: right side / left side Range of motion: Flexion of the lumbar spine <60 degrees Range of motion: Extension of the lumbar spine <20 degrees Gaenslen's Test positive right side / left side Cecily test: positive right side / left side Thigh Thrust Test positive right side / left side Sacral Thrust Test positive right side / left side Assessment and plan: Chronic mid back secondary to thoracic DDD, spondylosis with facet arthropathy without myelopathy Chronic and current use of high-risk medication (Opioids). The patient was counseled about risk of opioid use, psychological risk associated with opioids and was orally counseled to not overuse , divert or sell medications. Pt is to store medication in a safe location. The patient is counseled against driving while using narcotic medications and also not to use alcohol or any illicit recreational drugs. Patient verbalized understanding that the lack of compliance will result in failure to renew narcotic prescription(s) as well as possible discharge from the clinic Diagnoses, prognosis and treatment options including but not limited to physical therapy, surgical interventions, interventional therapies and medication management including narcotics and adjuvant medication were discussed. All patient questions answered MAPS reviewed and it was appropriate. UDS collected 09/04/23. Prescription refill for Methadone 10mg #60 w 1 RF. I have spent less than 30 minutes on patient care today. Dr Burgos was available by phone for the evaluation of this patient. The time was used to review the medical records including relevant urine studies and Prescription history (MAPs), review of the available imaging, evaluation and examination of the patient, coordination of care with the medical staff and if applicable referring physicians, as well as creation of the medical record PQRS Narrative: Smoking Status Current every day smoker Narcotic Agreement Date Signed 09/07/22 Hx Alcohol Use (MH) No Home Medications: Ambulatory Orders Rizatriptan Benzoate [Maxalt] 10 mg PO BID PRN 10/03/16 metFORMIN HCL ER [Glucophage Xr] 500 mg PO HS 04/05/18 ondansetron HCL [Zofran] 4 mg PO BID PRN 04/05/18 Albuterol Sulfate [Ventolin HFA] 1 - 2 puff INHALATION Q6H PRN 09/07/22 Desvenlafaxine Succinate [Pristiq] 100 mg PO DAILY 09/07/22 Fluticasone/Vilanterol [Breo Ellipta 100-25 Mcg Inhaler] 1 inhalation PO Q24HR 09/07/22 Insulin Degludec [Tresiba] 0 units SQ DAILY 09/07/22 Olmesartan [Benicar] 20 mg PO DAILY 09/07/22 Omeprazole [PriLOSEC] 20 mg PO AC-BRKFST 09/07/22 Pioglitazone [Actos] 15 mg PO DAILY 09/07/22 Vitamin B Complex/Folic Acid [Vitamin B Complex Tablet] 0.4 mg PO DAILY 09/07/22 tiZANidine HCL [Zanaflex] 4 mg PO TID 09/07/22 Methadone [Dolophine] 10 mg PO Q8H 30 Days #90 tab 12/29/22 Methadone HCl 10 mg PO Q8H 30 Days #75 tab 08/09/23 Methadone HCl 10 mg PO BID 30 Days #60 tab 09/04/23 Methadone HCl 10 mg PO BID 30 Days #60 tablet 09/04/23 Controlled Substance Measures - Controlled Substance Measures Is patient prescribed a controlled substance at discharge?: Yes When asked, does pt state using other controlled substances?: No If prescribed controlled substance>3 days was MAPS reviewed?: Yes
== END ==
LOC: PNWHC3 13:33
PROVIDERS: ATTEND Specialist
DX: M51.34 Other intervertebral disc degeneration, thoracic region (principal); M47.814 Spondylosis without myelopathy or radiculopathy, thoracic region; G89.29 Other chronic pain; F17.200 Nicotine dependence, unspecified, uncomplicated; Z79.891 Long term (current) use of opiate analgesic; Z88.8 Allergy status to other drugs, medicaments and biological substances; Z88.5 Allergy status to narcotic agent
CPT/HCPCS: 80307; G0463; 99212

== ENCOUNTER → 2023-10-30 | Outpatient (CLI) | payer MEDICARE ==
[2023-10-30 14:33] VITALS: BP 142/84; PULSE 72; RESP 15; TEMP 98.5
--- NOTE | 2023-10-30 14:35 | P.PAINPG ---
PQRS Measure Charge Sheet Comment: A 53 yr old male w at side with a history of severe and chronic LBP secondary to lumbar DDD and spondylosis with facet arthropathy without myelopathy presents for medication refills. Pain level is provoked at 8 /10 in intensity, constant, localized in the lumbar spine, pressure in character w shooting pain up towards the spine. Pain is provoked by over activity. PT was years ago. Pain is alleviated with medications, Lidoderm patches, repositioning and rest. Patient is currently on Methadone 10mg #75 Patient denies any side effects of the medication(s), denies excessive drowsiness or sleepiness, denies suicidal ideation and reports that the current pain medication is helping to control the pain and improve activities of daily living. Patient denies any motor or sensory deficits. Patient denies any fever or night sweats, denies any change in the bowel movements or urination. Physical Examination: -Constitutional: Cooperative. Not in acute distress . - Neurologic: Cranial nerve II to XII intact. No focal neurological deficits. - Psychatric: Alert & oriented x 3. Matching mood & appropriate affect. Judgment and insight intact. - Musculoskeletal: Cervical spine: Muscle bulk/ tone/ strength in the bilateral upper extremities normal Vertebral body tenderness to palpation over Spurling test positive Distraction test positive Facet loading test positive TTP Thoracic spine Muscle bulk / tone/ strength in the bilateral paraspinal muscles normal Vertebral body tender to palpation over T7 Facet loading test positive TTP Lumbar spine: Motor bulk/ tone/ strength lower extremities , thigh and legs : 5/5 Deep tendon reflexes : Normal Knee Jerk. Normal Ankle Jerk . Vertebral body tenderness to palpation over L3, L4, L5 Lumbar Facet Loading Test positive Straight Leg Raise: positive at 30 degrees right side/ left side Gaenslen's Test positive Sacral spine : Severe tenderness over the Sacroiliac joint: right side / left side Range of motion: Flexion of the lumbar spine <60 degrees Range of motion: Extension of the lumbar spine <20 degrees Gaenslen's Test positive right side / left side Cecily test: positive right side / left side Thigh Thrust Test positive right side / left side Sacral Thrust Test positive right side / left side Assessment and plan: Chronic mid back secondary to thoracic DDD, spondylosis with facet arthropathy without myelopathy Recommendation of thoracic x ray M51.34 May need additional imaging if indicated. Follow up w PCP for lab tests to rule out SIRS, polymyalgia rheumatica or other chronic inflammatory disorders. Script provided. Chronic and current use of high-risk medication (Opioids). The patient was counseled about risk of opioid use, psychological risk associated with opioids and was orally counseled to not overuse , divert or sell medications. Pt is to store medication in a safe location. The patient is counseled against driving while using narcotic medications and also not to use alcohol or any illicit recreational drugs. Patient verbalized understanding that the lack of compliance will result in failure to renew narcotic prescription(s) as well as possible discharge from the clinic Diagnoses, prognosis and treatment options including but not limited to physical therapy, surgical interventions, interventional therapies and medication management including narcotics and adjuvant medication were discussed. All patient questions answered MAPS reviewed and it was appropriate. UDS fr 09/04/23 reviewed and consistent. Prescription refill for Methadone 10mg #75 w 1 RF. I have spent less than 30 minutes on patient care today. Dr Burgos was available by phone for the evaluation of this patient. The time was used to review the medical records including relevant urine studies and Prescription history (MAPs), review of the available imaging, evaluation and examination of the patient, coordination of care with the medical staff and if applicable referring physicians, as well as creation of the medical record PQRS Narrative: Smoking Status Current every day smoker Narcotic Agreement Date Signed 09/07/22 Hx Alcohol Use (MH) No Home Medications: Ambulatory Orders Rizatriptan Benzoate [Maxalt] 10 mg PO BID PRN 10/03/16 metFORMIN HCL ER [Glucophage Xr] 500 mg PO HS 04/05/18 ondansetron HCL [Zofran] 4 mg PO BID PRN 04/05/18 Albuterol Sulfate [Ventolin HFA] 1 - 2 puff INHALATION Q6H PRN 09/07/22 Desvenlafaxine Succinate [Pristiq] 100 mg PO DAILY 09/07/22 Fluticasone/Vilanterol [Breo Ellipta 100-25 Mcg Inhaler] 1 inhalation PO Q24HR 09/07/22 Insulin Degludec [Tresiba] 0 units SQ DAILY 09/07/22 Olmesartan [Benicar] 20 mg PO DAILY 09/07/22 Omeprazole [PriLOSEC] 20 mg PO AC-BRKFST 09/07/22 Pioglitazone [Actos] 15 mg PO DAILY 09/07/22 Vitamin B Complex/Folic Acid [Vitamin B Complex Tablet] 0.4 mg PO DAILY 09/07/22 tiZANidine HCL [Zanaflex] 4 mg PO TID 09/07/22 Methadone [Dolophine] 10 mg PO Q8H 30 Days #90 tab 12/29/22 Methadone HCl 10 mg PO TID 30 Days #75 tab 10/30/23 Methadone HCl 10 mg PO TID 30 Days #75 tablet 10/30/23 Controlled Substance Measures - Controlled Substance Measures Is patient prescribed a controlled substance at discharge?: Yes When asked, does pt state using other controlled substances?: Yes If prescribed controlled substance>3 days was MAPS reviewed?: Yes
--- NOTE | 2023-10-30 15:06 | XR ---
EXAMINATION TYPE: XR thoracic spine 2V DATE OF EXAM: 10/30/2023 2:53 PM CLINICAL INDICATION:Male, 53 years old with history of M51.36 OTHER INTERVERTEBRAL; [facility] COMPARISON: None TECHNIQUE: XR thoracic spine 2V views of the spine in Frontal and lateral projections. FINDINGS: No evidence of acute fracture. There is scattered multilevel disk space narrowing without loss of ve rtebral body height. There is normal alignment of the thoracic vertebral bodies. Scattered osteophyte formation along the anterior and lateral aspects of the vertebral bodies. Neural foramen are patent given limitations of this exam. Spinal canal appears patent. IMPRESSION: 1. No acute osseous pathology. 2. Mild to moderate degeneration changes throughout the spine.
== END ==
LOC: PNWHC3 13:35
PROVIDERS: ATTEND Specialist
DX: M51.35 Other intervertebral disc degeneration, thoracolumbar region (principal); M47.815 Spondylosis without myelopathy or radiculopathy, thoracolumbar region; G89.29 Other chronic pain; F17.200 Nicotine dependence, unspecified, uncomplicated; Z79.891 Long term (current) use of opiate analgesic; Z88.8 Allergy status to other drugs, medicaments and biological substances; Z88.5 Allergy status to narcotic agent
CPT/HCPCS: 72070; G0463; 99211

== ENCOUNTER → 2023-12-21 | Outpatient (CLI) | payer MEDICARE ==
[2023-12-21 14:11] VITALS: BP 152/87; PULSE 73; RESP 15; TEMP 98.1
--- NOTE | 2023-12-21 14:36 | P.PAINPG ---
Objective - Vital Signs Vital signs: Intake & Output 12/20/23 12/21/23 12/21/23 18:59 06:59 18:59 Weight 81.193 kg PQRS Measure Charge Sheet Comment: A 53 yr old male with a history of severe and chronic mid back and LBP secondary to thoracolumbar DDD and spondylosis with facet arthropathy without myelopathy presents for medication refills. Pain level is provoked at 8 /10 in intensity, constant, localized in the mid to lower spine, pressure in character w shooting pain up towards the spine. Pain is provoked by over activity. PT was years ago. He prefers to follow a physician guided home stretching regimen daily since Feb 2023 as he has lots of pain due to uncontrolled diabetes. He stated his Hga1c was 13 at one point. He complains of severe numbness in his feet and pin-prick feelings forming in his fingers and hands. Pain is alleviated with medications, Lidoderm patches, repositioning and rest. Patient is currently on Methadone 10mg #75 Patient denies any side effects of the medication(s), denies excessive drowsiness or sleepiness, denies suicidal ideation and reports that the current pain medication is helping to control the pain and improve activities of daily living. Patient denies any motor or sensory deficits. Patient denies any fever or night sweats, denies any change in the bowel movements or urination. Physical Examination: -Constitutional: Cooperative. Not in acute distress . - Neurologic: Cranial nerve II to XII intact. No focal neurological deficits. - Psychatric: Alert & oriented x 3. Matching mood & appropriate affect. Judgment and insight intact. - Musculoskeletal: Cervical spine: Muscle bulk/ tone/ strength in the bilateral upper extremities normal Vertebral body tenderness to palpation over Spurling test positive Distraction test positive Facet loading test positive TTP Thoracic spine Muscle bulk / tone/ strength in the bilateral paraspinal muscles normal Vertebral body tender to palpation over T7 Facet loading test positive TTP Lumbar spine: Motor bulk/ tone/ strength lower extremities , thigh and legs : 5/5 Deep tendon reflexes : Normal Knee Jerk. Normal Ankle Jerk . Vertebral body tenderness to palpation over L3, L4, L5 Lumbar Facet Loading Test positive Straight Leg Raise: positive at 30 degrees right side/ left side Gaenslen's Test positive Sacral spine : Severe tenderness over the Sacroiliac joint: right side / left side Range of motion: Flexion of the lumbar spine <60 degrees Range of motion: Extension of the lumbar spine <20 degrees Gaenslen's Test positive right side / left side Cecily test: positive right side / left side Thigh Thrust Test positive right side / left side Sacral Thrust Test positive right side / left side Imaging: X ray thoracic spine from 10/30/23 reviewed Assessment and plan: Chronic mid back secondary to thoracic DDD, spondylosis with facet arthropathy without myelopathy Recommendation of MRI non contrast thoracic spine M51.34. Continue physician guided home stretching regimen to increase circulation, improve blood flow and increase strength, ROM and muscle tone. Chronic and current use of high-risk medication (Opioids). The patient was counseled about risk of opioid use, psychological risk associated with opioids and was orally counseled to not overuse , divert or sell medications. Pt is to store medication in a safe location. The patient is counseled against driving while using narcotic medications and also not to use alcohol or any illicit recreational drugs. Patient verbalized understanding that the lack of compliance will result in failure to renew narcotic prescription(s) as well as possible discharge from the clinic Diagnoses, prognosis and treatment options including but not limited to physical therapy, surgical interventions, interventional therapies and medication management including narcotics and adjuvant medication were discussed. All patient questions answered MAPS reviewed and it was appropriate. UDS fr 09/04/23 reviewed and c onsistent. Prescription refill for Methadone 10mg #75 w 1 RF. Add Neurontin 300mg #60 w 1 RF. Use, side effects, adverse reactions, safe storage discussed. Pt acknowledged understanding. I have spent less than 30 minutes on patient care today. Dr Burgos was available by phone for the evaluation of this patient. The time was used to review the medical records including relevant urine studies and Prescription history (MAPs), review of the available imaging, evaluation and examination of the patient, coordination of care with the medical staff and if applicable referring physicians, as well as creation of the medical record - Pain Location Medial Back Non-Pharmacological Interventions: Inactivity, Position/Reposition Pharmacological Interventions: Scheduled Medication PQRS Narrative: Smoking Status Current every day smoker Narcotic Agreement Date Signed 09/04/23 Hx Alcohol Use (MH) No Home Medications: Ambulatory Orders Rizatriptan Benzoate [Maxalt] 10 mg PO BID PRN 10/03/16 metFORMIN HCL ER [Glucophage Xr] 500 mg PO HS 04/05/18 ondansetron HCL [Zofran] 4 mg PO BID PRN 04/05/18 Albuterol Sulfate [Ventolin HFA] 1 - 2 puff INHALATION Q6H PRN 09/07/22 Desvenlafaxine Succinate [Pristiq] 100 mg PO DAILY 09/07/22 Fluticasone/Vilanterol [Breo Ellipta 100-25 Mcg Inhaler] 1 inhalation PO Q24HR 09/07/22 Insulin Degludec [Tresiba] 0 units SQ DAILY 09/07/22 Olmesartan [Benicar] 20 mg PO DAILY 09/07/22 Omeprazole [PriLOSEC] 20 mg PO AC-BRKFST 09/07/22 Pioglitazone [Actos] 15 mg PO DAILY 09/07/22 Vitamin B Complex/Folic Acid [Vitamin B Complex Tablet] 0.4 mg PO DAILY 09/07/22 tiZANidine HCL [Zanaflex] 4 mg PO TID 09/07/22 Methadone [Dolophine] 10 mg PO Q8H 30 Days #90 tab 12/29/22 Gabapentin [Neurontin] 300 mg PO BID 30 Days #60 cap 12/21/23 Methadone HCl 10 mg PO TID 30 Days #75 tab 12/21/23 Methadone HCl 10 mg PO TID 30 Days #75 tablet 12/21/23 Controlled Substance Measures - Controlled Substance Measures Is patient prescribed a controlled substance at discharge?: Yes When asked, does pt state using other controlled substances?: No If prescribed controlled substance>3 days was MAPS reviewed?: Yes If Rx opioid, was Start Talking consent form obtained?: Yes Was information provided regarding opioid addiction?: Yes
== END ==
LOC: PNWHC3 13:33
PROVIDERS: ATTEND Specialist
DX: M51.34 Other intervertebral disc degeneration, thoracic region (principal); M47.816 Spondylosis without myelopathy or radiculopathy, lumbar region; M54.50 Low back pain, unspecified; F17.200 Nicotine dependence, unspecified, uncomplicated; Z88.1 Allergy status to other antibiotic agents; Z88.6 Allergy status to analgesic agent; Z88.5 Allergy status to narcotic agent
CPT/HCPCS: 99211

== ENCOUNTER → 2023-12-21 | Outpatient (CLI) | payer MEDICARE ==
[2023-12-21 18:07] LABS: Basophils # (A) 0.04 X 10*3/uL (0.00-0.10); Basophils % (A) 0.3 %; Eosinophils # (A) 0.04 X 10*3/uL (0.04-0.35); Eosinophils % (A) 0.3 %; HCT 47.9 % (39.6-50.0); HGB 16.5 g/dL (13.0-17.0); Lymphocytes # (A) 2.74 X 10*3/uL (0.90-5.00); MCH 29.2 pg (27.0-32.0); MCHC 34.4 g/dL (32.0-37.0); MCV 84.6 FL (80.0-97.0); Monocytes # (A) 0.56 X 10*3/uL (0.20-1.00); Monocytes % (A) 4.7 %; NRBC Per 100 WBC 0 X 10*3/uL (0.00-0.01); Neutrophils # (A) 8.49 X 10*3/uL (1.80-7.70); Neutrophils % (A) 71.4 %; Platelet Count 182 X 10*3/uL (140-440); RBC 5.66 X 10*6/uL (4.40-5.60); RDW 12.5 % (11.5-14.5); WBC 11.91 X 10*3/uL (4.50-10.00)
[2023-12-21 18:25] LABS: ALT 21 U/L (10-49); AST 20 U/L (14-35); Albumin 4.8 g/dL (3.8-4.9); Albumin/Globulin Ratio 2.09 Ratio (1.60-3.17); Alkaline Phosphatase 154 U/L (41-126); Blood Urea Nitrogen 10.2 mg/dL (9.0-27.0); Calcium 10.1 mg/dL (8.7-10.3); Carbon Dioxide 21.8 mmol/L (21.6-31.8); Chloride 98 mmol/L (96-109); Creatine Kinase 55 U/L (35-257); Globulin 2.3 g/dL (1.6-3.3); Glucose 292 mg/dL (70-110); Potassium 4.5 mmol/L (3.5-5.5); Rheumatoid Factor, Qnt 32 IU/mL (0-15); Sodium 136 mmol/L (135-145); Total Bilirubin 0.3 mg/dL (0.3-1.2); Total Protein 7.1 g/dL (6.2-8.2)
[2023-12-21 18:45] LABS: Erythrocyte Sedimentation Rate 26 mm/Hr (0-20)
== END | disposition home or self-care (01) ==
LOC: LABWHC1 14:40
PROVIDERS: ATTEND Internal Medicine
DX: E11.65 Type 2 diabetes mellitus with hyperglycemia (principal)
CPT/HCPCS: 36415; 80053; 82550; 85025; 85652; 86431

== ENCOUNTER → 2024-02-19 | Outpatient (CLI) | payer MEDICARE ==
[2024-02-19 12:56] VITALS: RESP 16; TEMP 97.1
[2024-02-19 13:18] VITALS: BP 127/80; PULSE 95
--- NOTE | 2024-02-19 14:06 | XR ---
EXAMINATION TYPE: XR shoulder limited LT DATE OF EXAM: 02/19/2024 CLINICAL HISTORY: pain COMPARISON: NONE TECHNIQUE: Three views of the left shoulder are obtained. FINDINGS: There is no acute fracture/dislocation evident. The acromioclavicular and glenohumeral desiree int spaces appear within normal limits. The visualized ribs are intact and unremarkable. IMPRESSION: 1. There is no acute fracture or dislocation. ICD 10 NO FRACTURE, INITIAL EVALUATION
--- NOTE | 2024-02-19 15:11 | P.PAINPG ---
PQRS Measure Charge Sheet Comment: A 53 yr old male with a history of severe and chronic mid back and LBP secondary to thoracolumbar DDD and spondylosis with facet arthropathy without myelopathy presents for medication refills. Pain level is provoked at 7 /10 in intensity, constant, localized in the mid to lower spine, pressure in character w shooting pain up towards the spine and L shoulder. Pain is provoked by over activity. PT was years ago. He prefers to follow a physician guided home stretching regimen daily since Feb 2023. He complains of severe numbness in his feet and pin-prick feelings forming in his fingers and hands. Pain is alleviated with medications, Lidoderm patches, repositioning and rest. He recently has 5/10 pain in the L shoulder since Jan , achy in character without radiation of pain. Patient is currently on Methadone 10mg #75, Neurontin 300mg #60, Lidoderm Patient denies any side effects of the medication(s), denies excessive drowsiness or sleepiness, denies suicidal ideation and reports that the current pain medication is helping to control the pain and improve activities of daily living. Patient denies any motor or sensory deficits. Patient denies any fever or night sweats, denies any change in the bowel movements or urination. Physical Examination: -Constitutional: Cooperative. Not in acute distress . - Neurologic: Cranial nerve II to XII intact. No focal neurological deficits. - Psychatric: Alert & oriented x 3. Matching mood & appropriate affect. Judgment and insight intact. - Musculoskeletal: Cervical spine: Muscle bulk/ tone/ strength in the bilateral upper extremities normal Vertebral body tenderness to palpation over Spurling test positive Distraction test positive Facet loading test positive TTP Thoracic spine Muscle bulk / tone/ strength in the bilateral paraspinal muscles normal Vertebral body tender to palpation over T7 Facet loading test positive TTP Lumbar spine: Motor bulk/ tone/ strength lower extremities , thigh and legs : 5/5 Deep tendon reflexes : Normal Knee Jerk. Normal Ankle Jerk . Vertebral body tenderness to palpation over L3, L4, L5 Lumbar Facet Loading Test positive Straight Leg Raise: positive at 30 degrees right side/ left side Gaenslen's Test positive Sacral spine : Severe tenderness over the Sacroiliac joint: right side / left side Range of motion: Flexion of the lumbar spine <60 degrees Range of motion: Extension of the lumbar spine <20 degrees Gaenslen's Test positive right side / left side Cecily test: positive right side / left side Thigh Thrust Test positive right side / left side Sacral Thrust Test positive right side / left side Imaging: X ray thoracic spine from 10/30/23 reviewed Assessment and plan: Chronic mid back secondary to thoracic DDD, spondylosis with facet arthropathy without myelopathy, L shoulder DJD Pending Recommendation of MRI non contrast thoracic spine M51.34. Continue physician guided home stretching regimen to increase circulation, improve blood flow and increase strength, ROM and muscle tone. Chronic and current use of high-risk medication (Opioids). The patient was counseled about risk of opioid use, psychological risk associated with opioids and was orally counseled to not overuse , divert or sell medications. Pt is to store medication in a safe location. The patient is counseled against driving while using narcotic medications and also not to use alcohol or any illicit recreational drugs. Patient verbalized understanding that the lack of compliance will result in failure to renew narcotic prescription(s) as well as possible discharge from the clinic Diagnoses, prognosis and treatment options including but not limited to physical therapy, surgical interventions, interventional therapies and medication management including narcotics and adjuvant medication were discussed. All patient questions answered MAPS reviewed and it was appropriate. UDS collected 02/19/24. EKG script provided 02/19/24 . Prescription refill for Methadone 10mg #75 and Neurontin 300mg #60 w 1 RF. Use, side effects, adverse reactions, safe storage discussed. Pt acknowledged understanding. I have spent less than 30 minutes on patient care today. Dr Burgos was available by phone for the evaluation of this patient. The time was used to review the medical records including relevant urine studies and Prescription history (MAPs), review of the available imaging, evaluation and examination of the patient, coordination of care with the medical staff and if applicable referring physicians, as well as creation of the medical record PQRS Narrative: Smoking Status Current every day smoker Narcotic Agreement Date Signed 09/04/23 Hx Alcohol Use (MH) No Home Medications: Ambulatory Orders Rizatriptan Benzoate [Maxalt] 10 mg PO BID PRN 10/03/16 metFORMIN HCL ER [Glucophage Xr] 500 mg PO HS 04/05/18 ondansetron HCL [Zofran] 4 mg PO BID PRN 04/05/18 Albuterol Sulfate [Ventolin HFA] 1 - 2 puff INHALATION Q6H PRN 09/07/22 Desvenlafaxine Succinate [Pristiq] 100 mg PO DAILY 09/07/22 Fluticasone/Vilanterol [Breo Ellipta 100-25 Mcg Inhaler] 1 inhalation PO Q24HR 09/07/22 Insulin Degludec [Tresiba] 0 units SQ DAILY 09/07/22 Olmesartan [Benicar] 20 mg PO DAILY 09/07/22 Omeprazole [PriLOSEC] 20 mg PO AC-BRKFST 09/07/22 Pioglitazone [Actos] 15 mg PO DAILY 09/07/22 Vitamin B Complex/Folic Acid [Vitamin B Complex Tablet] 0.4 mg PO DAILY 09/07/22 tiZANidine HCL [Zanaflex] 4 mg PO TID 09/07/22 Methadone [Dolophine] 10 mg PO Q8H 30 Days #90 tab 12/29/22 Gabapentin [Neurontin] 300 mg PO BID 30 Days #60 cap 02/19/24 Methadone HCl 10 mg PO TID 30 Days #75 tab 02/19/24 Methadone HCl 10 mg PO TID 30 Days #75 tablet 02/19/24 Controlled Substance Measures - Controlled Substance Measures Is patient prescribed a controlled substance at discharge?: Yes When asked, does pt state using other controlled substances?: No If prescribed controlled substance>3 days was MAPS reviewed?: Yes
== END ==
LOC: PNWHC3 12:19
PROVIDERS: ATTEND Specialist
DX: M51.34 Other intervertebral disc degeneration, thoracic region (principal); M47.814 Spondylosis without myelopathy or radiculopathy, thoracic region; M19.012 Primary osteoarthritis, left shoulder; F17.200 Nicotine dependence, unspecified, uncomplicated; R94.31 Abnormal electrocardiogram [ECG] [EKG]; Z79.891 Long term (current) use of opiate analgesic; Z88.5 Allergy status to narcotic agent; Z88.8 Allergy status to other drugs, medicaments and biological substances
CPT/HCPCS: 80307; 73020; G0463; 99212

== ENCOUNTER → 2024-02-21 | Outpatient (CLI) | payer MEDICARE ==
--- NOTE | 2024-02-24 12:13 | MR ---
EXAMINATION TYPE: MR thoracic spine wo con DATE OF EXAM: 02/21/2024 6:54 PM CLINICAL INDICATION:Male, 53 years old with history of M51.34 OTHER INTERVERTEBRAL DISC DEGENERATION, THO; PHH, Mid back pain for 25 years. COMPARISON: No priors. TECHNIQUE: Multi planar, multi sequence imaging was performed utilizing: T1-weighted, short-tau inver karan recovery and T2-weighted of the thoracic spine. IV Contrast: cc (none if empty) FINDINGS: Alignment: Alignment is within normal limits. Vertebral bodies have preserved heights. Spinal cord: Spinal cord is within normal limits for signal. Discs: Intervertebral disc signal is maintained. No evidence of significant spinal canal or neural fo raminal stenosis. There is no evidence of extradural defects or central spinal canal narrowing at any thoracic vertebral body level Osseous structures: Mild reactive bony edema of the adjoining endplates of T7 and T8. Multilevel oste ophyte formation and facet joint arthropathy. Scattered disc space narrowing. IMPRESSION: Mild degeneration changes throughout the thoracic spine without evidence for significant spinal canal neural foraminal stenosis.
== END | disposition home or self-care (01) ==
LOC: RADMRIMAIN 18:01
PROVIDERS: ATTEND Specialist
DX: M51.34 Other intervertebral disc degeneration, thoracic region (principal)
CPT/HCPCS: 72146

== ENCOUNTER → 2024-04-15 | Outpatient (CLI) | payer MEDICARE ==
[2024-04-15 13:07] VITALS: BP 164/80; PULSE 97; RESP 16; TEMP 97.3
--- NOTE | 2024-04-15 13:36 | P.PAINPG ---
PQRS Measure Charge Sheet Comment: A 53 yr old male with a history of severe and chronic mid back and LBP secondary to thoracolumbar DDD and spondylosis with facet arthropathy without myelopathy presents for medication refills. Pain level is provoked at 7 /10 in intensity, constant, localized in the mid to lower spine, pressure in character w shooting pain up towards the spine and L shoulder. Pain is provoked by over activity. PT was years ago. He prefers to follow a physician guided home stretching regimen daily since Feb 2023. He complains of severe numbness in his feet and pin-prick feelings forming in his fingers and hands. Pain is alleviated with medications, Lidoderm patches, repositioning and rest. He recently has 5/10 pain in the L shoulder since Jan , achy in character without radiation of pain. Patient is currently on Methadone 10mg #75, Neurontin 300mg , Lidoderm Patient denies any side effects of the medication(s), denies excessive drowsiness or sleepiness, denies suicidal ideation and reports that the current pain medication is helping to control the pain and improve activities of daily living. Patient denies any motor or sensory deficits. Patient denies any fever or night sweats, denies any change in the bowel movements or urination. Physical Examination: -Constitutional: Cooperative. Not in acute distress . - Neurologic: Cranial nerve II to XII intact. No focal neurological deficits. - Psychatric: Alert & oriented x 3. Matching mood & appropriate affect. Judgment and insight intact. - Musculoskeletal: Cervical spine: Muscle bulk/ tone/ strength in the bilateral upper extremities normal Vertebral body tenderness to palpation over Spurling test positive Distraction test positive Facet loading test positive TTP Thoracic spine Muscle bulk / tone/ strength in the bilateral paraspinal muscles normal Vertebral body tender to palpation over T7 Facet loading test positive TTP Lumbar spine: Motor bulk/ tone/ strength lower extremities , thigh and legs : 5/5 Deep tendon reflexes : Normal Knee Jerk. Normal Ankle Jerk . Vertebral body tenderness to palpation over L3, L4, L5 Lumbar Facet Loading Test positive Straight Leg Raise: positive at 30 degrees right side/ left side Gaenslen's Test positive Sacral spine : Severe tenderness over the Sacroiliac joint: right side / left side Range of motion: Flexion of the lumbar spine <60 degrees Range of motion: Extension of the lumbar spine <20 degrees Gaenslen's Test positive right side / left side Cecily test: positive right side / left side Thigh Thrust Test positive right side / left side Sacral Thrust Test positive right side / left side Imaging: X ray thoracic spine from 10/30/23 reviewed MRI non contrast of thoracic spine from 02/21/24 reviewed Assessment and plan: Chronic mid back secondary to thoracic radiculopathy, spondylosis with facet arthropathy without myelopathy, L shoulder DJD Recommendation of medication management. Continue physician guided home stretching regimen to increase circulation, improve blood flow and increase strength, ROM and muscle tone. Chronic and current use of high-risk medication (Opioids). The patient was counseled about risk of opioid use, psychological risk associated with opioids and was orally counseled to not overuse , divert or sell medications. Pt is to store medication in a safe location. The patient is counseled against driving while using narcotic medications and also not to use alcohol or any illicit recreational drugs. Patient verbalized understanding that the lack of compliance will result in failure to renew narcotic prescription(s) as well as possible discharge from the clinic Diagnoses, prognosis and treatment options including but not limited to physical therapy, surgical interventions, interventional therapies and medication management including narcotics and adjuvant medication were d iscussed. All patient questions answered MAPS reviewed and it was appropriate. UDS collected 04/15/24. EKG from 02/19/24 reviewed. Prescription refill for Methadone 10mg #75 and incr Neurontin 300mg #90 w 1 RF. Use, side effects, adverse reactions, safe storage discussed. Pt acknowledged understanding. I have spent less than 30 minutes on patient care today. Dr Burgos was av ailable by phone for the evaluation of this patient. The time was used to review the medical records including relevant urine studies and Prescription history (MAPs), review of the available imaging, evaluation and examination of the patient, coordination of care with the medical staff and if applicable referring physicians, as well as creation of the medical record - Pain Location Bilateral Upper Back Non-Pharmacological Interventions: Inactivity, Position/Reposition Pharmacological Interventions: PRN Medication, Scheduled Medication PQRS Narrative: Smoking Status Current every day smoker Narcotic Agreement Date Signed 09/04/23 Hx Alcohol Use (MH) No Home Medications: Ambulatory Orders Rizatriptan Benzoate [Maxalt] 10 mg PO BID PRN 10/03/16 metFORMIN HCL ER [Glucophage Xr] 500 mg PO HS 04/05/18 ondansetron HCL [Zofran] 4 mg PO BID PRN 04/05/18 Albuterol Sulfate [Ventolin HFA] 1 - 2 puff INHALATION Q6H PRN 09/07/22 Desvenlafaxine Succinate [Pristiq] 100 mg PO DAILY 09/07/22 Fluticasone/Vilanterol [Breo Ellipta 100-25 Mcg Inhaler] 1 inhalation PO Q24HR 09/07/22 Insulin Degludec [Tresiba] 0 units SQ DAILY 09/07/22 Olmesartan [Benicar] 20 mg PO DAILY 09/07/22 Omeprazole [PriLOSEC] 20 mg PO AC-BRKFST 09/07/22 Pioglitazone [Actos] 15 mg PO DAILY 09/07/22 Vitamin B Complex/Folic Acid [Vitamin B Complex Tablet] 0.4 mg PO DAILY 09/07/22 tiZANidine HCL [Zanaflex] 4 mg PO TID 09/07/22 Methadone [Dolophine] 10 mg PO Q8H 30 Days #90 tab 12/29/22 Gabapentin [Neurontin] 300 mg PO TID 30 Days #90 cap 04/15/24 Methadone HCl 10 mg PO TID 30 Days #75 tab 04/15/24 Methadone HCl 10 mg PO TID 30 Days #75 tablet 04/15/24 Controlled Substance Measures - Controlled Substance Measures Is patient prescribed a controlled substance at discharge?: Yes When asked, does pt state using other controlled substances?: No If prescribed controlled substance>3 days was MAPS reviewed?: Yes
== END ==
LOC: PNWHC3 12:25
PROVIDERS: ATTEND Anesthesiology
DX: M47.24 Other spondylosis with radiculopathy, thoracic region (principal); M19.012 Primary osteoarthritis, left shoulder; M51.14 Intervertebral disc disorders with radiculopathy, thoracic region; F17.200 Nicotine dependence, unspecified, uncomplicated; Z79.891 Long term (current) use of opiate analgesic; Z88.5 Allergy status to narcotic agent; Z88.8 Allergy status to other drugs, medicaments and biological substances
CPT/HCPCS: 80307; 99212

== ENCOUNTER → 2024-06-10 | Outpatient (CLI) | payer MEDICARE ==
[2024-06-10 13:23] VITALS: BP 131/82; PULSE 88; RESP 16
--- NOTE | 2024-06-10 14:41 | P.PAINPG ---
PQRS Measure Charge Sheet Comment: A 53 yr old male with a history of severe and chronic mid back and LBP secondary to thoracolumbar DDD and spondylosis with facet arthropathy without myelopathy presents for medication refills. Pain level is provoked at 7 /10 in intensity, constant, localized in the mid to lower spine, pressure in character w shooting pain up towards the spine and L shoulder. Pain is provoked by over activity. PT was years ago. He prefers to follow a physician guided home stretching regimen daily since Feb 2023. He complains of severe numbness in his feet and pin-prick feelings forming in his fingers and hands. Pain is alleviated with medications, Lidoderm patches, repositioning and rest. He recently has 5/10 pain in the L shoulder since Jan , achy in character without radiation of pain. Patient is currently on Methadone 10mg #75, Neurontin 300mg , Lidoderm Patient denies any side effects of the medication(s), denies excessive drowsiness or sleepiness, denies suicidal ideation and reports that the current pain medication is helping to control the pain and improve activities of daily living. Patient denies any motor or sensory deficits. Patient denies any fever or night sweats, denies any change in the bowel movements or urination. Physical Examination: -Constitutional: Cooperative. Not in acute distress . - Neurologic: Cranial nerve II to XII intact. No focal neurological deficits. - Psychatric: Alert & oriented x 3. Matching mood & appropriate affect. Judgment and insight intact. - Musculoskeletal: Cervical spine: Muscle bulk/ tone/ strength in the bilateral upper extremities normal Vertebral body tenderness to palpation over Spurling test positive Distraction test positive Facet loading test positive TTP Thoracic spine Muscle bulk / tone/ strength in the bilateral paraspinal muscles normal Vertebral body tender to palpation over T7 Facet loading test positive TTP Lumbar spine: Motor bulk/ tone/ strength lower extremities , thigh and legs : 5/5 Deep tendon reflexes : Normal Knee Jerk. Normal Ankle Jerk . Vertebral body tenderness to palpation over L3, L4, L5 Lumbar Facet Loading Test positive Straight Leg Raise: positive at 30 degrees right side/ left side Gaenslen's Test positive Sacral spine : Severe tenderness over the Sacroiliac joint: right side / left side Range of motion: Flexion of the lumbar spine <60 degrees Range of motion: Extension of the lumbar spine <20 degrees Gaenslen's Test positive right side / left side Cecily test: positive right side / left side Thigh Thrust Test positive right side / left side Sacral Thrust Test positive right side / left side Imaging: X ray thoracic spine from 10/30/23 reviewed MRI non contrast of thoracic spine from 02/21/24 reviewed Assessment and plan: Chronic mid back secondary to thoracic radiculopathy, spondylosis with facet arthropathy without myelopathy, L shoulder DJD Recommendation of medication management. Continue physician guided home stretching regimen to increase circulation, improve blood flow and increase strength, ROM and muscle tone. Chronic and current use of high-risk medication (Opioids). The patient was counseled about risk of opioid use, psychological risk associated with opioids and was orally counseled to not overuse , divert or sell medications. Pt is to store medication in a safe location. The patient is counseled against driving while using narcotic medications and also not to use alcohol or any illicit recreational drugs. Patient verbalized understanding that the lack of compliance will result in failure to renew narcotic prescription(s) as well as possible discharge from the clinic Diagnoses, prognosis and treatment options including but not limited to physical therapy, surgical interventions, interventional therapies and medication management including narcotics and adjuvant medication were d iscussed. All patient questions answered MAPS reviewed and it was appropriate. UDS from 04/15/24 reviewed and consistent. EKG from 02/19/24 reviewed. Will renew narcotic agreement at next visit. Prescription refill for Methadone 10mg #75 and incr Neurontin 300mg #90 w 1 RF. Use, side effects, adverse reactions, safe storage discussed. Pt acknowledged understanding. I have spent less than 30 minutes on patient care today. Dr Burgos was available by phone for the evaluation of this patient. The time was used to review the medical records including relevant urine studies and Prescription history (MAPs), review of the available imaging, evaluation and examination of the patient, coordination of care with the medical staff and if applicable referring physicians, as well as creation of the medical record PQRS Narrative: Smoking Status Current every day smoker Narcotic Agreement Date Signed 09/04/23 Hx Alcohol Use (MH) No Home Medications: Ambulatory Orders Rizatriptan Benzoate [Maxalt] 10 mg PO BID PRN 10/03/16 metFORMIN HCL ER [Glucophage Xr] 500 mg PO HS 04/05/18 ondansetron HCL [Zofran] 4 mg PO BID PRN 04/05/18 Albuterol Sulfate [Ventolin HFA] 1 - 2 puff INHALATION Q6H PRN 09/07/22 Desvenlafaxine Succinate [Pristiq] 100 mg PO DAILY 09/07/22 Fluticasone/Vilanterol [Breo Ellipta 100-25 Mcg Inhaler] 1 inhalation PO Q24HR 09/07/22 Insulin Degludec [Tresiba] 0 units SQ DAILY 09/07/22 Olmesartan [Benicar] 20 mg PO DAILY 09/07/22 Omeprazole [PriLOSEC] 20 mg PO AC-BRKFST 09/07/22 Pioglitazone [Actos] 15 mg PO DAILY 09/07/22 Vitamin B Complex/Folic Acid [Vitamin B Complex Tablet] 0.4 mg PO DAILY 09/07/22 tiZANidine HCL [Zanaflex] 4 mg PO TID 09/07/22 Methadone [Dolophine] 10 mg PO Q8H 30 Days #90 tab 12/29/22 Gabapentin [Neurontin] 300 mg PO TID 30 Days #90 cap 04/15/24 Methadone HCl 10 mg PO TID 30 Days #75 tab 04/15/24 Methadone HCl 10 mg PO TID 30 Days #75 tablet 04/15/24 Controlled Substance Measures - Controlled Substance Measures Is patient prescribed a controlled substance at discharge?: Yes When asked, does pt state using other controlled substances?: No If prescribed controlled substance>3 days was MAPS reviewed?: Yes
== END ==
LOC: PNWHC3 13:04
PROVIDERS: ATTEND Specialist
DX: M47.26 Other spondylosis with radiculopathy, lumbar region (principal); F17.200 Nicotine dependence, unspecified, uncomplicated; Z88.8 Allergy status to other drugs, medicaments and biological substances; Z88.5 Allergy status to narcotic agent
CPT/HCPCS: 99211

== ENCOUNTER → 2024-07-29 | Outpatient (CLI) | payer MEDICARE ==
[2024-07-29 13:10] VITALS: BP 137/90; PULSE 91; RESP 19; TEMP 97.9
--- NOTE | 2024-07-29 14:55 | P.PAINPG ---
Objective - Vital Signs Vital signs: Intake & Output 07/28/24 07/29/24 07/29/24 18:59 06:59 18:59 Weight 185 kg PQRS Measure Charge Sheet Comment: A 53 yr old male with a history of severe and chronic mid back and LBP secondary to thoracolumbar DDD and spondylosis with facet arthropathy without myelopathy presents for medication refills. Pain level is provoked at 7 /10 in intensity, constant, localized in the mid to lower spine, pressure in character w shooting pain up towards the spine and L shoulder. Pain is provoked by over activity. PT was years ago. He prefers to follow a physician guided home stretching regimen daily since Feb 2023. He complains of severe numbness in his feet and pin-prick feelings forming in his fingers and hands. Pain is alleviated with medications, Lidoderm patches, repositioning and rest. He recently has 5/10 pain in the L shoulder since Jan , achy in character without radiation of pain. Patient is currently on Methadone 10mg, Neurontin 300mg #90, Lidoderm Patient denies any side effects of the medication(s), denies excessive drowsiness or sleepiness, denies suicidal ideation and reports that the current pain medication is helping to control the pain and improve activities of daily living. Patient denies any motor or sensory deficits. Patient denies any fever or night sweats, denies any change in the bowel movements or urination. Physical Examination: -Constitutional: Cooperative. Not in acute distress . - Neurologic: Cranial nerve II to XII intact. No focal neurological deficits. - Psychatric: Alert & oriented x 3. Matching mood & appropriate affect. Judgment and insight intact. - Musculoskeletal: Cervical spine: Muscle bulk/ tone/ strength in the bilateral upper extremities normal Vertebral body tenderness to palpation over Spurling test positive Distraction test positive Facet loading test positive TTP Thoracic spine Muscle bulk / tone/ strength in the bilateral paraspinal muscles normal Vertebral body tender to palpation over T7 Facet loading test positive TTP Lumbar spine: Motor bulk/ tone/ strength lower extremities , thigh and legs : 5/5 Deep tendon reflexes : Normal Knee Jerk. Normal Ankle Jerk . Vertebral body tenderness to palpation over L3, L4, L5 Lumbar Facet Loading Test positive Straight Leg Raise: positive at 30 degrees right side/ left side Gaenslen's Test positive Sacral spine : Severe tenderness over the Sacroiliac joint: right side / left side Range of motion: Flexion of the lumbar spine <60 degrees Range of motion: Extension of the lumbar spine <20 degrees Gaenslen's Test positive right side / left side Cecily test: positive right side / left side Thigh Thrust Test positive right side / left side Sacral Thrust Test positive right side / left side Imaging: X ray thoracic spine from 10/30/23 reviewed MRI non contrast of thoracic spine from 02/21/24 reviewed Assessment and plan: Chronic mid back secondary to thoracic radiculopathy, spondylosis with facet arthropathy without myelopathy, L shoulder DJD Recommendation of medication management. Continue physician guided home stretching regimen to increase circulation, improve blood flow and increase strength, ROM and muscle tone. Chronic and current use of high-risk medication (Opioids). The patient was counseled about risk of opioid use, psychological risk associated with opioids and was orally counseled to not overuse , divert or sell medications. Pt is to store medication in a safe location. The patient is counseled against driving while using narcotic medications and also not to use alcohol or any illicit recreational drugs. Patient verbalized understanding that the lack of compliance will result in failure to renew narcotic prescription(s) as well as possible discharge from the clinic Diagnoses, prognosis and treatment options including but not limited to physical therapy, surgical interventions, interventional therapies and medication management including narcotics and adjuvant medication were discussed . All patient questions answered MAPS reviewed and it was appropriate. UDS from 04/15/24 reviewed and consistent. EKG from 02/19/24 reviewed. Narcotic/ Opiate agreement renewed 07/29/24. Prescription refill for Methadone 10mg #90 and Neurontin 300mg #90 w 1 RF. Use, side effects, adverse reactions, safe storage discussed. Pt acknowledged understanding. I have spent less than 30 minutes on patient care today. Dr Burgos was available by phone for the evaluation of this patient. The time was used to review the medical records including relevant urine studies and Prescription history (MAPs), review of the available imaging, evaluation and examination of the patient, coordination of care with the medical staff and if applicable referring physicians, as well as creation of the medical record PQRS Narrative: Smoking Status Current every day smoker Narcotic Agreement Date Signed 09/04/23 Hx Alcohol Use (MH) No Home Medications: Ambulatory Orders Rizatriptan Benzoate [Maxalt] 10 mg PO BID PRN 10/03/16 metFORMIN HCL ER [Glucophage Xr] 500 mg PO HS 04/05/18 ondansetron HCL [Zofran] 4 mg PO BID PRN 04/05/18 Albuterol Sulfate [Ventolin HFA] 1 - 2 puff INHALATION Q6H PRN 09/07/22 Desvenlafaxine Succinate [Pristiq] 100 mg PO DAILY 09/07/22 Fluticasone/Vilanterol [Breo Ellipta 100-25 Mcg Inhaler] 1 inhalation PO Q24HR 09/07/22 Insulin Degludec [Tresiba] 0 units SQ DAILY 09/07/22 Olmesartan [Benicar] 20 mg PO DAILY 09/07/22 Omeprazole [PriLOSEC] 20 mg PO AC-BRKFST 09/07/22 Pioglitazone [Actos] 15 mg PO DAILY 09/07/22 Vitamin B Complex/Folic Acid [Vitamin B Complex Tablet] 0.4 mg PO DAILY 09/07/22 Methadone [Dolophine] 10 mg PO Q8H 30 Days #90 tab 12/29/22 Cyclobenzaprine [Flexeril] 10 mg PO HS PRN 30 Days #30 tab 06/10/24 Gabapentin [Neurontin] 300 mg PO TID 30 Days #90 cap 07/29/24 Methadone HCl 10 mg PO TID 30 Days #90 tab 07/29/24 Methadone HCl 10 mg PO TID 30 Days #90 tablet 07/29/24 Controlled Substance Measures - Controlled Substance Measures Is patient prescribed a controlled substance at discharge?: Yes When asked, does pt state using other controlled substances?: No If prescribed controlled substance>3 days was MAPS reviewed?: Yes If Rx opioid, was Start Talking consent form obtained?: Yes Was information provided regarding opioid addiction?: Yes
== END ==
LOC: PNWHC3 12:51
PROVIDERS: ATTEND Specialist
DX: M47.24 Other spondylosis with radiculopathy, thoracic region (principal); M50.30 Other cervical disc degeneration, unspecified cervical region; F11.20 Opioid dependence, uncomplicated; F17.200 Nicotine dependence, unspecified, uncomplicated; M19.012 Primary osteoarthritis, left shoulder; Z88.5 Allergy status to narcotic agent; Z88.8 Allergy status to other drugs, medicaments and biological substances
CPT/HCPCS: 99211

== ENCOUNTER → 2024-09-30 | Outpatient (CLI) | payer MEDICARE ==
[2024-09-30 13:26] VITALS: BP 152/90; PULSE 91; RESP 17; TEMP 97.8
--- NOTE | 2024-09-30 15:34 | P.PAINPG ---
PQRS Measure Charge Sheet Comment: A 53 yr old male with a history of severe and chronic mid back and LBP secondary to thoracolumbar radiculopathy, spondylosis with facet arthropathy without myelopathy presents for medication refills. Pain level is provoked at 4- 6 /10 in intensity, constant, localized in the mid to lower spine, pressure in c haracter w shooting pain up towards the spine. Pain is provoked by over activity. PT was years ago. He prefers to follow a physician guided home stretching regimen daily since Feb 2023. He complains of severe numbness in his feet and pin-prick feelings forming in his fingers and hands. Pain is alleviated with medications, Lidoderm patches, repositioning and rest. Is dealing with mandibular teeth decay which need extracting and are contributing to pain. Advised to seek oral surgeon . Patient is currently on Methadone 10mg, Neurontin 300mg #90, Lidoderm Patient denies any side effects of the medication(s), denies excessive drowsiness or sleepiness, denies suicidal ideation and reports that the current pain medication is helping to control the pain and improve activities of daily living. Patient denies any motor or sensory deficits. Patient denies any fever or night sweats, denies any change in the bowel movements or urination. Physical Examination: -Constitutional: Cooperative. Not in acute distress . - Neurologic: Cranial nerve II to XII intact. No focal neurological deficits. - Psychatric: Alert & oriented x 3. Matching mood & appropriate affect. Judgment and insight intact. - Musculoskeletal: Cervical spine: Muscle bulk/ tone/ strength in the bilateral upper extremities normal Vertebral body tenderness to palpation over Spurling test positive Distraction test positive Facet loading test positive TTP Thoracic spine Muscle bulk / tone/ strength in the bilateral paraspinal muscles normal Vertebral body tender to palpation over T7 Facet loading test positive TTP Lumbar spine: Motor bulk/ tone/ strength lower extremities , thigh and legs : 5/5 Deep tendon reflexes : Normal Knee Jerk. Normal Ankle Jerk . Vertebral body tenderness to palpation over L3, L4, L5 Lumbar Facet Loading Test positive Straight Leg Raise: positive at 30 degrees right side/ left side Gaenslen's Test positive Sacral spine : Severe tenderness over the Sacroiliac joint: right side / left side Range of motion: Flexion of the lumbar spine <60 degrees Range of motion: Extension of the lumbar spine <20 degrees Gaenslen's Test positive right side / left side Cecily test: positive right side / left side Thigh Thrust Test positive right side / left side Sacral Thrust Test positive right side / left side Imaging: X ray thoracic spine from 10/30/23 reviewed MRI non contrast of thoracic spine from 02/21/24 reviewed Assessment and plan: Chronic mid back secondary to thoracic radiculopathy, spondylosis with facet arthropathy without myelopathy, L shoulder DJD Recommendation of medication management. Continue physician guided home stretching regimen to increase circulation, improve blood flow and increase strength, ROM and muscle tone. Chronic and current use of high-risk medication (Opioids). The patient was counseled about risk of opioid use, psychological risk associated with opioids and was orally counseled to not overuse , divert or sell medications. Pt is to store medication in a safe location. The patient is counseled against driving while using narcotic medications and also not to use alcohol or any illicit recreational drugs. Patient verbalized understanding that the lack of compliance will result in failure to renew narcotic prescription(s) as well as possible discharge from the clinic Diagnoses, prognosis and treatment options including but not limited to physical therapy, surgical interventions, interventional therapies and medication management including narcotics and adjuvant medication were discussed. All patient questions answered MAPS reviewed and it was appropriate. UDS from 04/15/24 reviewed and consistent. EKG from 02/19/24 reviewed. Narcotic/ Opiate agreement renewed 07/29/24. Prescription refill for Methadone 10mg #90 and Neurontin 300mg #90 w 1 RF. Use, side effects, adverse reactions, safe storage discussed. Pt acknowledged understanding. I have spent less than 30 minutes on patient care today. Dr Burgos was available by phone for the evaluation of this patient. The time was used to review the medical records including relevant urine studies and Prescription history (MAPs), review of the available imaging, evaluation and examination of the patient, coordination of care with the medical staff and if applicable referring physicians, as well as creation of the medical record - Pain Location Medial Back Non-Pharmacological Interventions: Relaxation Technique PQRS Narrative: Smoking Status Current every day smoker Narcotic Agreement Date Signed 07/29/24 Hx Alcohol Use (MH) No Home Medications: Ambulatory Orders Rizatriptan Benzoate [Maxalt] 10 mg PO BID PRN 10/03/16 metFORMIN HCL ER [Glucophage Xr] 500 mg PO HS 04/05/18 ondansetron HCL [Zofran] 4 mg PO BID PRN 04/05/18 Albuterol Sulfate [Ventolin HFA] 1 - 2 puff INHALATION Q6H PRN 09/07/22 Desvenlafaxine Succinate [Pristiq] 100 mg PO DAILY 09/07/22 Fluticasone/Vilanterol [Breo Ellipta 100-25 Mcg Inhaler] 1 inhalation PO Q24HR 09/07/22 Insulin Degludec [Tresiba] 0 units SQ DAILY 09/07/22 Olmesartan [Benicar] 20 mg PO DAILY 09/07/22 Omeprazole [PriLOSEC] 20 mg PO AC-BRKFST 09/07/22 Pioglitazone [Actos] 15 mg PO DAILY 09/07/22 Vitamin B Complex/Folic Acid [Vitamin B Complex Tablet] 0.4 mg PO DAILY 09/07/22 Methadone [Dolophine] 10 mg PO Q8H 30 Days #90 tab 12/29/22 Cyclobenzaprine [Flexeril] 10 mg PO HS PRN 30 Days #30 tab 08/19/24 Gabapentin [Neurontin] 300 mg PO TID 30 Days #90 cap 09/30/24 Methadone HCl 10 mg PO TID 30 Days #90 tab 09/30/24 Methadone HCl 10 mg PO TID 30 Days #90 tablet 09/30/24 Controlled Substance Measures - Controlled Substance Measures Is patient prescribed a controlled substance at discharge?: Yes When asked, does pt state using other controlled substances?: No If prescribed controlled substance>3 days was MAPS reviewed?: Yes
== END ==
LOC: PNWHC3 12:49
PROVIDERS: ATTEND Specialist
DX: M47.24 Other spondylosis with radiculopathy, thoracic region (principal); G89.29 Other chronic pain; F17.210 Nicotine dependence, cigarettes, uncomplicated; Z79.899 Other long term (current) drug therapy; Z88.5 Allergy status to narcotic agent; Z88.8 Allergy status to other drugs, medicaments and biological substances; Z88.6 Allergy status to analgesic agent
CPT/HCPCS: 99212

== ENCOUNTER → 2024-12-23 | Outpatient (CLI) | payer MEDICARE ==
[2024-12-23 13:11] VITALS: BP 150/92; PULSE 75; RESP 17; TEMP 98.1
--- NOTE | 2024-12-25 11:00 | P.PAINPG ---
Objective - Vital Signs Vital signs: Vital Signs Temp 98.1 F 12/23/24 13:02 Pulse 75 12/23/24 13:02 Resp 17 12/23/24 13:02 BP 150/92 12/23/24 13:02 Pulse Ox 99 12/23/24 13:02 FiO2 PQRS Measure Charge Sheet Mode of Arrival: Ambulatory Comment: A 54 yr old male with a history of severe and chronic mid back and LBP secondary to thoracolumbar radiculopathy, spondylosis with facet arthropathy without myelopathy presents for medication refills. Pain level is provoked at 7- 8 /10 in intensity, constant, localized in the mid to lower spine, pressure in character w shooting pain up towards the spine. Pain is provoked by over activity. PT was years ago. He prefers to follow a physician guided home stretching regimen daily since Feb 2023. He complains of severe numbness in his feet and pin-prick feelings forming in his fingers and hands. Pain is alleviated with medications, Lidoderm patches, repositioning and rest. Discussed attempts at weaning down to twice a day, but due to recent interventional procedures, he is not ready at this time. Patient is currently on Methadone 10mg, Neurontin 300mg #90, Lidoderm Patient denies any side effects of the medication(s), denies excessive drowsiness or sleepiness, denies suicidal ideation and reports that the current pain medication is helping to control the pain and improve activities of daily living. Patient denies any motor or sensory deficits. Patient denies any fever or night sweats, denies any change in the bowel movements or urination. Physical Examination: -Constitutional: Cooperative. Not in acute distress . - Neurologic: Cranial nerve II to XII intact. No focal neurological deficits. - Psychatric: Alert & oriented x 3. Matching mood & appropriate affect. Judgment and insight intact. - Musculoskeletal: Cervical spine: Muscle bulk/ tone/ strength in the bilateral upper extremities normal Vertebral body tenderness to palpation over Spurling test positive Distraction test positive Facet loading test positive TTP Thoracic spine Muscle bulk / tone/ strength in the bilateral paraspinal muscles normal Vertebral body tender to palpation over T7 Facet loading test positive TTP Lumbar spine: Motor bulk/ tone/ strength lower extremities , thigh and legs : 5/5 Deep tendon reflexes : Normal Knee Jerk. Normal Ankle Jerk . Vertebral body tenderness to palpation over L3, L4, L5 Lumbar Facet Loading Test positive Straight Leg Raise: positive at 30 degrees right side/ left side Gaenslen's Test positive Sacral spine : Severe tenderness over the Sacroiliac joint: right side / left side Range of motion: Flexion of the lumbar spine <60 degrees Range of motion: Extension of the lumbar spine <20 degrees Gaenslen's Test positive right side / left side Cecily test: positive right side / left side Thigh Thrust Test positive right side / left side Sacral Thrust Test positive right side / left side Imaging: X ray thoracic spine from 10/30/23 reviewed MRI non contrast of thoracic spine from 02/21/24 reviewed Assessment and plan: Chronic mid back secondary to thoracic radiculopathy, spondylosis with facet arthropathy without myelopathy, L shoulder DJD Recommendation of medication management. Continue physician guided home stretching regimen to increase circulation, improve blood flow and increase strength, ROM and muscle tone. Chronic and current use of high-risk medication (Opioids). The patient was counseled about risk of opioid use, psychological risk associated with opioids and was orally counseled to not overuse , divert or sell medications. Pt is to store medication in a safe location. The patient is counseled against driving while using narcotic medications and also not to use alcohol or any illicit recreational drugs. Patient verbalized understanding that the lack of compliance will result in failure to renew narcotic prescription(s) as well as possible discharge from the clinic Diagnoses, prognosis and treatment options including but not limited to physical therapy, surgical interventions, interventional therapies and medication management including narcotics and adjuvant medication were discussed. All patient questions answered MAPS reviewed and it was appropriate. UDS collected 12/23/24. EKG ordered 12/23/24. Narcotic/ Opiate agreement renewed 07/29/24. Prescription refill for Methadone 10mg #90 and Neurontin 300mg #90 w 1 RF. Use, side effects, adverse reactions, safe storage discussed. Pt acknowledged understanding. I have spent less than 30 minutes on patient care today. Dr Burgos was available by phone for the evaluation of this patient. The time was used to review the medical records including relevant urine studies and Prescription history (MAPs), review of the available imaging, evaluation and examination of the patient, coordination of care with the medical staff and if applicable referring physicians, as well as creation of the medical record PQRS Narrative: Smoking Status Current every day smoker Narcotic Agreement Date Signed 07/29/24 Blood Pressure 150/92 Pain Intensity [Medial Back] 8 Scale Used Numeric (1 - 10) Hx Alcohol Use (MH) No Home Medications: Ambulatory Orders Rizatriptan Benzoate [Maxalt] 10 mg PO BID PRN 10/03/16 metFORMIN HCL ER [Glucophage Xr] 500 mg PO HS 04/05/18 ondansetron HCL [Zofran] 4 mg PO BID PRN 04/05/18 Albuterol Sulfate [Ventolin HFA] 1 - 2 puff INHALATION Q6H PRN 09/07/22 Desvenlafaxine Succinate [Pristiq] 100 mg PO DAILY 09/07/22 Fluticasone/Vilanterol [Breo Ellipta 100-25 Mcg Inhaler] 1 inhalation PO Q24HR 09/07/22 Insulin Degludec [Tresiba] 0 units SQ DAILY 09/07/22 Olmesartan [Benicar] 20 mg PO DAILY 09/07/22 Omeprazole [PriLOSEC] 20 mg PO AC-BRKFST 09/07/22 Pioglitazone [Actos] 15 mg PO DAILY 09/07/22 Vitamin B Complex/Folic Acid [Vitamin B Complex Tablet] 0.4 mg PO DAILY 09/07/22 Methadone [Dolophine] 10 mg PO Q8H 30 Days #90 tab 12/29/22 Cyclobenzaprine [Flexeril] 10 mg PO HS PRN 30 Days #30 tab 08/19/24 Gabapentin [Neurontin] 300 mg PO TID 30 Days #90 cap 09/30/24 Gabapentin [Neurontin] 300 mg PO TID 30 Days #90 cap 11/25/24 Methadone HCl 10 mg PO TID 30 Days #90 tab 12/23/24 Methadone HCl 10 mg PO TID 30 Days #90 tab 12/23/24 Methadone HCl 10 mg PO TID 30 Days #90 tablet 12/23/24 Controlled Substance Measures - Controlled Substance Measures Is patient prescribed a controlled substance at discharge?: Yes When asked, does pt state using other controlled substances?: No If prescribed controlled substance>3 days was MAPS reviewed?: Yes
== END ==
LOC: PNWHC3 12:44
PROVIDERS: ATTEND Specialist
DX: M47.24 Other spondylosis with radiculopathy, thoracic region (principal); F17.200 Nicotine dependence, unspecified, uncomplicated; Z88.5 Allergy status to narcotic agent; Z88.8 Allergy status to other drugs, medicaments and biological substances
CPT/HCPCS: 80307; G0463; 99212